=== PATIENT | male | born 1960 | race Caucasian/White ===

== ENCOUNTER 2023-02-25 07:17 | Outpatient (OUT) | payer OTHER, SELFPAY ==
--- NOTE | 2023-02-25 08:00 | NM_ITS ---
Patient: ANA TORIBIO Exam Date: 02/25/2023 : 1960 Gender:M Ordering : DR Tito Pereyra . Admission #: [id number] Family : Order #: [id number] CLICK HERE TO VIEW EXAM RADIOLOGY REPORT PROCEDURE: NM [place] PERF SPECT REST STR COMPARISON: None. INDICATIONS: Chest pain TECHNIQUE: Exam Description: Stress/Rest two day protocol gated SPECT Rest Imagin.9 mCi Tc-99m Cardiolite IV on 02/28/2023 Stress Imaging 25.4 mCi Tc-99m Cardiolite IV on 02/25/2023 Exercise Protocol: 0.4 mg Lexiscan given IV Heart Rate (bpm): Rest: 67 Max: 94 PMHR: 59 Blood Pressure: Rest: 162/78 Max: 168/78 Symptoms: Rest and peak stress ECG findings were normal and the exercise portion of the study was normal per attending physician Dr. Hills . For more details please see separate cardiac stress test report. FINDINGS: QUALITY OF STUDY: Good. PERFUSION DEFECT: LOCATION: Basal inferior. Basal inferolateral. Mid-anterior. Mid-inferior. Mid-inferolateral. [place]. SIZE: Large (5 or more segments). SEVERITY: Moderate. TYPE: Mixed. WALL MOTION: Normal. LV SIZE: Normal. 107 mL. TID / TCD: None; 0.9 LVEF: Normal. Calculated EF 67%. SUMMARY: Myocardial perfusion imaging study has ABNORMAL findings. CONCLUSION: 1. Small to moderate sized area moderately decreased uptake mid anterior and anterior lateral wall, LAD distribution. An area of reversible ischemia is suspected. Consider further evaluation 2. Fixed defect inferior wall, RCA 3. Normal exercise test Dictated by: Kelby Dior MD on 02/28/2023 at 09:32 Approved by: Kelby Dior MD on 02/28/2023 at 09:35
[2023-02-25] MEDS: REGADENOSON 0.4 MG/5 ML SYRINGE IV (08:09)
--- NOTE | 2023-02-25 09:22 | PM.STRESS ---
Stress Test Stress Test Requesting physician: Tito Pereyra Procedure: Lexiscan Cardiolite stress test General Information: Reason for Stress Test: Dyspnea Cardiac History and Risk Factors: Hypertension, LVH. Father s/p CABG. Resting 12 - Lead Electrocardiogram: Normal sinus rhythm with rate 67. Incomplete right bundle branch block. Normal T-waves and ST-segments. Stress Test: Protocol: Lexiscan protocol was initiated with injection of 0.4mg Lexiscan IV push followed by Cardiolite. Blood pressure: Initial: 162/78, Maximum: 168/78 Rate & rhythm: Patient remained in sinus rhythm during the exercise and recovery portions of the study.? The maximum heart rate was 94, which was 59% of the maximum predicted heart rate 158. Isolated PVCs noted. ST-segments & T-waves: There were no T-wave changes and no ST-segment changes when compared to the baseline EKG. Patient response/symptoms: There were no symptoms similar to the chief complaint. Interpretation: Normal Lexiscan. Cardiolite imaging interpretation will be reported separately. Clinical correlation required.
== END 2023-02-25 07:18 | disposition home or self-care (01) ==
PROVIDERS: PCP Family Medicine; Visit Provider Family Medicine
DX: I95.9 Hypotension, unspecified (principal); R06.09 Other forms of dyspnea
CPT/HCPCS: 78452; 93017; A9500; J2785

== ENCOUNTER 2023-03-07 07:47 | Outpatient (OUT) | payer OTHER, SELFPAY ==
[2023-03-07 08:47] LABS: Basophils Absolute Auto 0.1 10^3/uL (0.0-0.1); Basophils Percent Auto 1.2 % (0.2-2.0); Eosinophils Absolute Auto 0.3 10^3/uL (0.0-0.7); Eosinophils Percent Auto 5.1 % (0.9-7.0); Hemoglobin 14.7 g/dL (14.0-18.0); Immature Granulocytes Abs Auto 0.02 10^3/uL (0.00-0.03); Immature Granulocytes Pct Auto 0.3 % (0.0-0.5); Lymphocytes Absolute Auto 2.2 10^3/uL (1.2-3.8); Lymphocytes Percent Auto 32.5 % (20.5-60.0); Mean Corpuscular HGB Conc 32.7 g/dL (29.9-35.2); Mean Corpuscular Hemoglobin 32.1 pg (25.9-34.0); Mean Corpuscular Volume 98.3 fL (80.0-94.0); Mean Platelet Volume 11.1 fL (9.5-13.5); Monocytes Absolute Auto 0.5 10^3/uL (0.3-0.8); Monocytes Percent Auto 7.9 % (1.7-12.0); Neutrophils Absolute Auto 3.6 10^3/uL (1.4-6.5); Platelet Count 314 10^3/uL (150-450); Red Blood Count 4.58 10^6/uL (4.70-6.10); Red Cell Distribution Width 13.9 % (11.0-15.0); White Blood Count 6.7 10^3/uL (4.0-11.0)
[2023-03-07 09:24] LABS: Anion Gap 10.9; BUN Creatinine Ratio 11.2; Carbon Dioxide 25.1 mmol/L (21.0-32.0); Chloride 107 mmol/L (98-107); Estimated GFR (African America 42 (>=60); Estimated GFR (Non-African Ame 35 (>=60); Glucose 153 mg/dL (74-106); Sodium 139 mmol/L (136-145)
== END 2023-03-07 07:48 | disposition home or self-care (01) ==
LOC: LAB 07:48
PROVIDERS: PCP Family Medicine; Visit Provider Internal Medicine Interventional Cardiology
DX: Z01.818 Encounter for other preprocedural examination (principal)
CPT/HCPCS: 36415; 80048; 85025

== ENCOUNTER 2023-04-01 08:50 | Outpatient (OUT) | payer OTHER, SELFPAY ==
[2023-04-01 09:22] LABS: Anion Gap 10.3; BUN Creatinine Ratio 11.7; Calcium 8.4 mg/dL (8.5-10.1); Carbon Dioxide 27.8 mmol/L (21.0-32.0); Chloride 107 mmol/L (98-107); Estimated GFR (African America 52 (>=60); Estimated GFR (Non-African Ame 43 (>=60); Glucose 148 mg/dL (74-106); Potassium 4.1 mmol/L (3.5-5.1); Sodium 141 mmol/L (136-145)
== END 2023-04-01 08:51 | disposition home or self-care (01) ==
PROVIDERS: PCP Family Medicine; Visit Provider Internal Medicine Interventional Cardiology
DX: R94.39 Abnormal result of other cardiovascular function study (principal)
CPT/HCPCS: 36415; 80048

== ENCOUNTER 2023-04-08 06:56 | Outpatient (OUT) | payer OTHER, SELFPAY ==
--- NOTE | 2023-04-08 08:00 | CT_ITS ---
The [address] [address] Patient Name: ANA TORIBIO MRN: [id number] date: 1960 Sex: M Assigned Patient Location: CARD Current Patient Location: CARD Accession/Order Number: [id number] Exam Date: 04/08/2023 08:15 Report Date: 04/08/2023 09:16 At the request of: HERMELINDA LEI Procedure: CT angio chest EXAM: CT angio chest HISTORY: Enlarged Thoracic Aorta I77.89, Shortness Of Breath R06.02 COMPARISON: None. TECHNIQUE: Following intravenous administration of 100 cc of Visipaque, axial soft tissue and lung windows of the chest were performed with coronal and sagittal reformats. 3-D MIPS reconstructions were created and reviewed. CT dose reduction technique was used including Automated Exposure Control. Findings: Unremarkable thyroid gland. The heart is mildly enlarged. There are coronary artery calcifications. No pericardial effusion. The thoracic aorta is normal caliber. No aortic dissection. Aberrant right subclavian artery. The pulmonary arteries are nondilated. The central airways are patent. No pneumothorax. No pleural effusion. No focal consolidation. Minimal bilateral lower lung atelectasis. No enlarged mediastinal, hilar, axillary or supraclavicular lymph nodes. Calcified mediastinal and right hilar nodes likely relating to prior granulomatous disease. There are stones within the gallbladder. Splenic calcifications also likely relating to prior granulomatous disease. No aggressive sclerotic or lytic osseous lesions. Mild multilevel degenerative spondylosis. CT/CT angio chest IMPRESSION: 1. No thoracic aortic aneurysm. 2. Evidence of prior granulomatous disease. 3. Cholelithiasis. Electronically authenticated by: SILVIA DIALLO Date: 04/08/2023 09:16
--- NOTE | 2023-04-08 08:59 | CA_ITS ---
Patient: ANA TORIBIO Exam Date: 04/08/2023 : 1960 Gender:M Ordering : DR HERMELINDA LEI M.D. Admission #: [id number] Family : Order #: [id number] CLICK HERE TO VIEW EXAM ECHOCARDIOGRAM REPORT PROCEDURE: CA ECHO DOPPLER COMPLETE INDICATIONS: Enlarged thoracic aorta, shortness of breath COMPARISON: None. DESCRIPTION: COMPLETE ECHOCARDIOGRAM Real-time transthoracic echocardiography with 2D, M-mode, spectral and color flow Doppler performed. QUALITY: Technical quality was good. LEFT VENTRICLE: Normal chamber size. Normal left ventricular wall thickness. Global left ventricular systolic function is normal. LV EF: Calculated left ventricular ejection fraction is 63%. DIASTOLIC: Normal diastolic function. ATRIAL SEPTUM: LEFT ATRIUM: Mild dilatation. RIGHT ATRIUM: Mild dilatation. RIGHT VENTRICLE: Mild dilatation. Normal right ventricular systolic function. TRICUSPID VALVE: Normal mobility and thickness. No stenosis with trivial regurgitation. No evidence of pulmonary hypertension. RVSP 33 mmHg MITRAL VALVE: Normal mobility and thickness. No evidence of mitral valve stenosis. There is no mitral annular calcification. No mitral regurgitation. AORTIC VALVE: Normal trileaflet appearance. No visible sclerosis. Normal leaflet mobility. No evidence of aortic valve stenosis. No aortic regurgitation. AORTIC ROOT: Normal diameter and appearance. Ascending aorta is normal in size measuring 3.3 cm. PULMONIC VALVE: Normal thickness and mobility. No stenosis. Trivial regurgitation. PERICARDIUM: No evidence of pericardial effusion. IVC: Collapses with inspirations. Normal size. PLEURA: CONCLUSION: 1. Normal ventricular systolic function. LVEF is 60 to 65%. 2. Normal diastolic function. 3. The right ventricle is mildly dilated with normal systolic function. 4. No significant valvular dysfunction. 5. Normal right-sided pressures. 6. The ascending aorta is normal in size. Adult Echocardiography Procedure Report Left Ventricle LVEDD (3.7 - 5.6 cm): 5.31 cm LVESD (2.2 - 4.0 cm): 3.28 cm LVIVS thickness (0.6 - 1.2 cm): 1.03 cm LVPW thickness (0.5 - 1.0 cm): 0.96 cm e': 0.15 m/s E - e': 4.54 LVOT Max Gradient: 3.29 mm[Hg] LVOT Area (cm2): 0.91 m/s Peak Velocity (LVOT): 0.91 m/s Mean Velocity (LVOT): 0.62 m/s LVOT Diameter 2.45 cm Left Ventricular Ejection Fraction: 63.50 % Left Atrium LA Volume Index (2D A2C): 35.51 ml/m2 Left Atrium Systolic Dimension: 3.84 cm Mitral Valve MV E to A Ratio: 0.84 Mitral Valve A-Wave Peak Velocity: 0.80 m/s Mitral Valve E-Wave Peak Velocity: 0.67 m/s Right Ventricle RV Internal Diastolic Dimension: 4.35 cm Aorta AO Root Diam: 3.28 cm Ascending Ao Diam: 3.26 cm Aortic Valve AoV Area (Peak Kyle): 3.44 cm2, 3.44 cm2 AoV Area (VTI): 3.65 cm2, 3.65 cm2 Peak Velocity(Antegrade Flow): 1.24 m/s Peak Gradient(Antegrade Flow): 6.16 mm[Hg] Mean Velocity(Antegrade Flow): 0.79 m/s Mean Gradient(Antegrade Flow): 2.91 mm[Hg] Velocity Time Integral: 28.57 cm Tricuspid Valve Peak Velocity (Regurgitant Flow): 1.59 m/s, 2.75 m/s Pulmonic Valve Mean Gradient: 2.44 mm[Hg], 2.24 mm[Hg] Mean Velocity: 0.72 m/s, 0.69 m/s Peak Velocity: 1.04 m/s Peak Gradient: 4.74 mm[Hg], 3.87 mm[Hg] Right Atrium Right Atrium Systolic Pressure: 56.57 ml, 56.57 ml Dictated by: Jason Jalloh M.D. on 04/08/2023 at 16:02 Approved by: Jason Jalloh M.D. on 04/08/2023 at 16:13
== END 2023-04-08 06:57 | disposition home or self-care (01) ==
LOC: CARD 06:56
PROVIDERS: PCP Family Medicine; Visit Provider Internal Medicine Interventional Cardiology
DX: I77.89 Other specified disorders of arteries and arterioles (principal); R06.02 Shortness of breath; K80.20 Calculus of gallbladder without cholecystitis without obstruction; R93.89 Abnormal findings on diagnostic imaging of other specified body structures
CPT/HCPCS: 71275; 93306; Q9966

== ENCOUNTER 2023-04-25 08:47 | Outpatient (OUT) | payer OTHER, SELFPAY ==
[2023-04-25 10:11] LABS: Chol HDL Ratio 3.3; Cholesterol 117 mg/dL (<=200); HDL Cholesterol 35 mg/dL (40-60); Triglycerides 169 mg/dL (<=150); VLDL CHOLESTEROL 33.8 mg/dL
== END 2023-04-25 08:48 | disposition home or self-care (01) ==
LOC: LAB 08:48
PROVIDERS: PCP Family Medicine; Visit Provider Internal Medicine Interventional Cardiology
DX: E78.5 Hyperlipidemia, unspecified (principal)
CPT/HCPCS: 36415; 80061

== ENCOUNTER 2023-06-10 07:52 | Outpatient (OUT) | payer OTHER, SELFPAY ==
--- NOTE | 2023-06-10 09:10 | CA_ITS ---
The [facility] Test Date: 2023-06-10 Pat Name: ANA TORIBIO Department: Room: - Gender: Male Barrel Inspector: Courtney Rodriguez : 1960 Requested By: HERMELINDA LEI Order Number: [id number] Reading MD: DUNCAN HULL Interpretive Statements Biphasic doppler waveforms. PVR waveforms with normal upstroke, amplitude and dicrotic notch Right: - significant pressure gradient between the calf and DP cuff - abnormal DAWSON Left: - sigificant pressure gradient between the calf and DP cuff - abnormal DAWSON Impression - elevated indices (B/L thigh, B/L calf, B/L DP and left PT) consistent with calcified, noncompressible arterial mitchell, which may underestemate the degree of arterial disease - segmental pressures nondiagnostic due to elevated indices - B/L TBI, which are not influenced by arterial wall calcification, are normal. - clinical correlation advised Electronically Signed On 06-12-2023 7:20:11 EDT by DUNCAN HULL
== END 2023-06-10 07:53 | disposition home or self-care (01) ==
LOC: CARD 07:53
PROVIDERS: PCP Family Medicine; Visit Provider Internal Medicine Interventional Cardiology
DX: I73.9 Peripheral vascular disease, unspecified (principal)
CPT/HCPCS: 93924

== ENCOUNTER 2024-03-15 08:43 | Outpatient (OUT) | payer OTHER, SELFPAY ==
[2024-03-15 10:19] LABS: Phosphorus 3.5 mg/dL (2.6-4.7)
[2024-03-15 10:21] LABS: Creatinine Urine Random 154.24 mg/dL (20.00-300.00); Microalbum Creatinine Ratio Ur 8.4 mg/g (0.0-29.9); Microalbumin Urine Random <1.3 mg/dL (<=30.0)
== END 2024-03-15 08:44 | disposition home or self-care (01) ==
LOC: LAB 08:44
PROVIDERS: PCP Family Medicine; Visit Provider Internal Medicine
DX: E11.59 Type 2 diabetes mellitus with other circulatory complications (principal); E55.9 Vitamin D deficiency, unspecified; E66.01 Morbid (severe) obesity due to excess calories
CPT/HCPCS: 36415; 82043; 82306; 82570; 84100

== ENCOUNTER 2024-03-15 08:47 | Outpatient (OUT) | payer OTHER, SELFPAY ==
[2024-03-15 09:56] LABS: Basophils Absolute Auto 0.1 10^3/uL (0.0-0.1); Basophils Percent Auto 1.3 % (0.2-2.0); Eosinophils Absolute Auto 0.3 10^3/uL (0.0-0.7); Eosinophils Percent Auto 6.1 % (0.9-7.0); Hemoglobin 14.4 g/dL (14.0-18.0); Immature Granulocytes Abs Auto 0.01 10^3/uL (0.00-0.03); Immature Granulocytes Pct Auto 0.2 % (0.0-0.5); Lymphocytes Absolute Auto 1.6 10^3/uL (1.2-3.8); Mean Corpuscular HGB Conc 32.7 g/dL (29.9-35.2); Mean Corpuscular Hemoglobin 32.7 pg (25.9-34.0); Mean Platelet Volume 11.2 fL (9.5-13.5); Monocytes Absolute Auto 0.4 10^3/uL (0.3-0.8); Monocytes Percent Auto 7.8 % (1.7-12.0); Neutrophils Absolute Auto 3.1 10^3/uL (1.4-6.5); Neutrophils Percent Auto 56.6 % (43.0-75.0); Platelet Count 251 10^3/uL (150-450); Red Cell Distribution Width 13.9 % (11.0-15.0); White Blood Count 5.5 10^3/uL (4.0-11.0)
[2024-03-15 10:11] LABS: Estimated Average Glucose 117 mg/dL; Glycohemoglobin A1C 5.7 % (4.5-6.2)
[2024-03-15 10:25] LABS: Alanine Aminotransferase 13 U/L (16-63); Albumin Level 3.3 g/dL (3.4-5.0); Alkaline Phosphatase 84 U/L (46-116); Anion Gap 11.6; Aspartate Amino Transferase 15 U/L (15-37); Bilirubin Total 0.6 mg/dL (0.2-1.0); Calcium 8.6 mg/dL (8.5-10.1); Carbon Dioxide 26.6 mmol/L (21.0-32.0); Chloride 107 mmol/L (98-107); Chol HDL Ratio 2.7; Cholesterol 114 mg/dL (<=200); Estimated GFR (African America 59 (>=60); Estimated GFR (Non-African Ame 48 (>=60); Globulin 3.2 g/dL; Glucose 118 mg/dL (74-106); HDL Cholesterol 42 mg/dL (40-60); Potassium 4.2 mmol/L (3.5-5.1); Sodium 141 mmol/L (136-145); Total Protein 6.5 g/dL (6.4-8.2); Triglycerides 85 mg/dL (<=150)
[2024-03-15 10:35] LABS: Free T3 2.12 pg/mL (2.18-3.98)
[2024-03-15 11:29] LABS: Prostate Specific Antigen Scrn 2.02 ng/mL (<=4.00)
== END 2024-03-15 08:48 | disposition home or self-care (01) ==
LOC: LAB 08:49
PROVIDERS: PCP Family Medicine; Visit Provider Family Medicine
DX: E11.59 Type 2 diabetes mellitus with other circulatory complications (principal); E55.9 Vitamin D deficiency, unspecified; E66.01 Morbid (severe) obesity due to excess calories; R94.39 Abnormal result of other cardiovascular function study; I25.10 Atherosclerotic heart disease of native coronary artery without angina pectoris; R06.00 Dyspnea, unspecified; E78.5 Hyperlipidemia, unspecified; Z12.5 Encounter for screening for malignant neoplasm of prostate
CPT/HCPCS: 36415; 80053; 80061; 82043; 82306; 82570; 83036; 84100; 84436; 84443; 84481; 85025; G0103

== ENCOUNTER 2025-03-08 07:52 | Outpatient (OUT) | payer MEDICARE, SELFPAY ==
--- OUTSIDE RECORDS SUMMARY | 2024-10-05 09:55 | XMS_ITS ---
Author Name Auto Generated Organization [facility] Care Team Providers Care Gastroenterology Technician Name Role Phone JOANNA SY Attending Unavailable JOANNA SY Referring Unavailable HERMELINDA MOJICA Attending Unavailable PROBLEMS DATE TYPE CONDITION / CODE ATTENDING STATUS [facility] 10/30/2023 Admitting Diagnosis Atherosclerotic heart disease of [place] coronary artery without angina pectoris / I25.10(ICD-10) HERMELINDA MOJICA Active [facility] PROCEDURES No Procedure Records Found RESULTS OFFICE VISIT Observed: 05/04/2024 9:00 AM Status: COMPLETED Source: [facility] [id number] Hilario Francis M Date Provider Department Center 05/04/2024 271-HERMELINDA MOJICA [facility] Family History Problem Relation Age of Onset Coronary artery disease Father Other Father Family Status - Relation Status Age at Father Level of Service:[address] [place] OFFICE/OUTPATIENT ESTABLISHED LOW MDM 20 MIN PROGRESS Observed: 05/04/2024 9:00 AM Status: COMPLETED Source: [facility] Cardiology Clinic Note Chief Complaint: Patient here for follow up heart cath, CTA, and echo. Still denies chest pain and SOB. Always has claudication. HPI: Hilario Francis is a 63 y.o. male With a history of coronary artery disease, hypertension and diabetes He states that he feels improved after his heart catheterization and initiation of medical therapy. He has no shortness of breath. He denies chest pain. He denies leg pain per se however states that his legs are always tired . No nocturnal pain, no skin breakdown or ulcerations. Update 05/04/2024: Doing well; no new cardiovascular symptoms Cardiology ROS: Review of Systems Constitutional: Positive for malaise/fatigue. Negative for chills, fever and weight gain. Cardiovascular: Negative for chest pain, claudication, dyspnea on exertion, irregular heartbeat, leg swelling, near-syncope, orthopnea, palpitations, paroxysmal nocturnal dyspnea and syncope. All other systems reviewed and are negative. Past Medical History He has a past medical history of Diabetes mellitus ([facility]), Hypotension, and Stroke ([facility]). Surgical History He has no past surgical history on file. Social History He reports that he has never smoked. His smokeless tobacco use includes chew. He reports that he does not currently use alcohol. No history on file for drug use. Family History Family History Problem Relation Name Age of Onset Coronary artery disease Father Other (CABG) Father Allergies Patient has no known allergies. Medications Current Outpatient Medications: atorvastatin (Lipitor) 80 mg tablet, Take 1 tablet (80 mg) by mouth at bedtime., Disp: 90 tablet, Rfl: 3 carvedilol (Coreg) 3.125 mg tablet, Take 1 tablet (3.125 mg) by mouth with breakfast and with evening meal., Disp: 180 tablet, Rfl: 3 diclofenac (Voltaren) 75 mg EC tablet, Take 75 mg by mouth in the morning and at bedtime. Do not crush, chew, or split., Disp: , Rfl: dilTIAZem CD (Cardizem CD) 300 mg 24 hr capsule, Take 300 mg by mouth in the morning., Disp: , Rfl: glipiZIDE (Glucotrol) 10 mg tablet, Take 20 mg by mouth in the morning., Disp: , Rfl: isosorbide mononitrate ER (Imdur) 30 mg 24 hr tablet, Take 1 tablet (30 mg) by mouth once daily as directed. Do not crush or chew., Disp: 90 tablet, Rfl: 3 lisinopril 20 mg tablet, Take 20 mg by mouth in the morning., Disp: , Rfl: Ozempic 2 mg/dose (8 mg/3 mL) pen injector, Inject 8 mg/mL under the skin 1 (one) time per week., Disp: , Rfl: pioglitazone (Actos) 30 mg tablet, Take 45 mg by mouth in the morning., Disp: , Rfl: aspirin 81 mg EC tablet, Take 81 mg by mouth in the morning., Disp: , Rfl: Last Recorded Vitals BP 131/71 (BP Location: Right arm, Patient Position: Sitting) Pulse 67 Ht 1.88 m (6' 2 ) Wt (!) 147 kg (325 lb) SpO2 95% BMI 41.73 kg/m??? Physical Examination: GENERAL: alert and oriented x3, well developed, in no acute distress. HEAD: atraumatic, normocephalic. EYES: TAMMIE, EOMI. NECK: trachea midline, no JVD present, no carotid bruits present. CARDIAC: S1, S2 present. RRR. No murmur, rubs, or gallops. RESPIRATORY: CTAB, no increased effort of breathing, no rales, rhonchi, or wheezing. ABDOMEN: soft, nontender, nondistended. EXTREMITIES: no lower extremity edema, peripheral pulses are 2+ bilaterally. No rash/skin discoloration present. NEURO: strength/sensation equal and symmetric in bilateral upper and lower extremities. PSYCH: appropriate mood, affect, and judgement. Investigations: Cardiovascular Laboratory Report FINAL IMPRESSIONS: Subtotally occluded diagonal branch of the left anterior descending coronary artery Moderate disease of the left anterior descending coronary artery Mild to moderate disease of the left circumflex and right coronary arteries Normal global left ventricular systolic function by noninvasive imaging Fluoroscopic evidence of enlarged ascending aorta and aortic root Moderate to severe systemic hypertension RECOMMENDATIONS: A computerized tomographic angiogram (CTA) of the thoracic aorta will be ordered to evaluate for evidence of aneurysmal disease A complete echocardiogram will be obtained to evaluate valvular and other structural parameters Aggressive cardiovascular factor modification Optimal medical therapy for coronary artery disease should include aspirin, high intensity statin therapy, a beta-kenneth and given his diabetes RAAS inhibitor Will add Imdur 30 mg daily for symptomatic relief Could consider addition of an SGLT2 inhibitor or GLP-1 receptor agonist given diabetes and vascular disease Follow-up with Dr. Mojica in the next 1 to 2 months Follow-up with his family physician as scheduled Basic metabolic panel 04/01/2023: Serum creatinine 1.63 Echocardiogram 04/08/2023 Global left ventricular systolic function is normal; EF is 60 to 65%. Normal diastolic function. Right ventricle is mildly dilated with normal systolic function. No significant valvular abnormalities. Normal right-sided pressures. CTA thoracic aorta: No thoracic aortic aneurysm Evidence of prior granulomatous disease Cholelithiasis Segmental leg pressures and ABIs 06/10/2023: Bilateral toe brachial indices which are not influenced by arterial wall calcification on normal Labs 03/15/2024: Creatinine is 1.47 HbA1c is 5.7 AST and ALT are normal Cholesterol is 114, LDL is 55, HDL is 42, triglycerides 85 Assessment: Coronary artery disease: Abnormal stress test Exertional fatigue/shortness of breath - Anginal equivalent History of hypertension Dyslipidemia Diabetes mellitus History of cerebrovascular accident Chronic kidney disease Plan: Continue optimal medical therapy for coronary artery disease including aspirin, high intensity statin therapy, RAAS inhibition and a beta-kenneth He is appropriately on a GLP-1 receptor agonist in the form of Ozempic Discontinue fenofibrate; check fasting lipid profile and liver function test in the next several weeks. If he still has elevated triglycerides, will consider addition of Vascepa. Continue Imdur; Uptitrate as needed for symptom relief Return to clinic in 12 months or sooner should problems arise Hermelinda Mojica MD, MPH, [facility], [facility], [facility] Interventional Cardiology Pager Email: [email or web address] ALLERGIES DATE TYPE / CODE NAME / CODE REACTION SEVERITY SOURCE SYSTEMIC/[id number]( SNOMED CT) NO KNOWN ALLERGIES [facility] ENCOUNTERS ADMIT/DISCHARGE ACCOUNT NUMBER ADMITTING ENCOUNTER CLASS LOCATION SOURCE 10/05/2024/ 5 [id number] Ambulatory Building:[facility] 05/04/2024/ 4 [id number] Ambulatory Building:[facility] PAYERS ENCOUNTER GUARANTOR PAYER SUBSCRIBER SOURCE 10/05/2024 HILARIO GARCIA TYREEDOB: [id number] [address], [place] [address]Hld: () Primary Insurance:[employer] MUTUAL MEDICAREPolicy Number: [id number] Date:2024-09-01 HILARIO GARCIA TYREEDOB: [id number] [address], [place] [address] [facility] 05/04/2024 Primary Insurance:[facility] WorldHeartPolicy Number: [id number] Date:2022-09-01 HILARIO WAGGONEROB: [id number] [address], [place] [address] [facility]
[2025-03-08 10:30] LABS: Albumin Level 3.5 g/dL (3.4-5.0); Anion Gap 11.6; Blood Urea Nitrogen 21.0 mg/dL (7.0-18.0); Calcium 9.0 mg/dL (8.5-10.1); Carbon Dioxide 28.8 mmol/L (21.0-32.0); Chloride 108 mmol/L (98-107); Cholesterol 107 mg/dL (<=200); Estimated GFR (African America 59 (>=60 mL/min/1.73m^2); Estimated GFR (Non-African Ame 49 (>=60 mL/min/1.73m^2); Glucose 118 mg/dL (74-106); HDL Cholesterol 43 mg/dL (40-60); Potassium 4.4 mmol/L (3.5-5.1); Sodium 144 mmol/L (136-145); Triglycerides 90 mg/dL (<=150); VLDL CHOLESTEROL 18.0 mg/dL
== END 2025-03-08 07:53 | disposition home or self-care (01) ==
PROVIDERS: PCP Family Medicine; Visit Provider Internal Medicine
DX: E11.65 Type 2 diabetes mellitus with hyperglycemia (principal)
CPT/HCPCS: 36415; 80061; 80069; 82043; 82306; 82570

== ENCOUNTER 2025-04-29 07:12 | Outpatient (OUT) | payer MEDICARE, SELFPAY ==
--- OUTSIDE RECORDS SUMMARY | 2025-04-29 07:19 | XMS_ITS | CCD ---
Author Organization [facility] CliniSyne Care Team Providers Care Cloth Classer Name Role Phone DAVEY SY Attending Unavailable DAVEY SY Consulting Unavailable DR JILLIAN PEREYRA Primary Care Unavailable DAVEY SY Admitting Unavailable DAVEY SY Consulting Unavailable DR JILLIAN PEREYRA Primary Care Unavailable DAVEY SY Admitting Unavailable DAVEY SY Attending Unavailable HALLIE, DR WALSH Admitting Unavailable DR JILLIAN PEREYRA Attending Unavailable DR JILLIAN PEREYRA Consulting Unavailable DR JILLIAN PEREYRA Primary Care Unavailable MAGNUS MAYBERRY Attending Unavailable HERMELINDA MOJICA Attending Unavailable Unavailable Primary Care Provider UnavailJillian Sorenson MD Primary Care Provider [phone] Jillian Pereyra MD Primary Care Provider [phone] DAVEY SY Attending Unavailable DAVEY SY F Referring Unavailable DAVEY SY Attending Unavailable Allergies Allergy Classification Reported Allergen(s) Allergy Type Date of Onset Reaction(s) Facility (7 sources) SITagliptin Drug Allergy 08-17-2024 [facility] Medications Current Medications Medication Drug Class(es) Dates Sig (Normalized) Sig (Original) aspirin 81 mg delayed release oral tablet (6 sources) Platelet Aggregation Inhibitor, Nonsteroidal Anti-inflammatory Drug take 1 tablet by mouth once daily aspirin 81 MG EC tablet Take 81 mg by mouth Daily Active atorvastatin 80 mg oral tablet (6 sources) HMG-CoA Reductase Inhibitor take 1 tablet by mouth once daily atorvastatin (Lipitor) 80 MG tablet Take 80 mg by mouth Daily Active carvedilol 3.125 mg oral tablet (6 sources) alpha-Adrenergic Matilde, beta-Adrenergic Matilde carvedilol (Coreg) 3.125 MG tablet 3.125 mg Active diclofenac sodium 75 mg delayed release oral tablet (7 sources) Nonsteroidal Anti-inflammatory Drug Start: 04-28-2024 diclofenac (Voltaren) 75 MG EC tablet Take 75 mg by mouth as needed in the morning and 75 mg as needed in the evening. 04/28/2024 Active 24 hr dilTIAZem hydrochloride 300 mg extended release oral capsule (7 sources) Calcium Channel Matilde Start: 06-26-2024 take 1 capsule by mouth once daily, then take 1 capsule by mouth every twenty-four hours dilTIAZem CD (Cardizem CD) 300 MG 24 hr capsule Take 300 mg by mouth Daily 06/26/2024 Active fenofibrate 145 mg oral tablet (7 sources) Peroxisome Proliferator Receptor alpha Agonist Start: 10-04-2023 take 1 tablet by mouth once daily fenofibrate (Tricor) 145 MG tablet Take 145 mg by mouth Daily 10/04/2023 Active glipiZIDE 10 mg oral tablet (10 sources) Sulfonylurea Start: 07-10-2024 End: 10-02-2025 take 1 tablet by mouth twice daily before mealtime glipiZIDE (Glucotrol) 10 MG tablet Indications: Type 2 diabetes mellitus with hyperglycemia, without long-term current use of insulin (HCC) Take 1 tablet (10 mg) by mouth 2 (two) times a day before meals 180 tablet 1 04/05/2025 10/02/2025 Active 24 hr isosorbide mononitrate 30 mg extended release oral tablet (7 sources) Nitrate Vasodilator Start: 04-23-2024 take 1 tablet by mouth once daily, then take 1 tablet by mouth every twenty-four hours isosorbide mononitrate ER (Imdur) 30 MG 24 hr tablet Take 30 mg by mouth Daily 04/23/2024 Active lisinopril 20 mg oral tablet (7 sources) Angiotensin Converting Enzyme Inhibitor Start: 04-28-2024 take 1 tablet by mouth once daily lisinopril 20 MG tablet Take 20 mg by mouth Daily 04/28/2024 Active Ozempic, 2 MG/DOSE, 8 MG/3ML solution pen-injector (4 sources) Start: 06-26-2024 End: 12-07-2024 take 2 mg by mouth every week Ozempic, 2 MG/DOSE, 8 MG/3ML solution pen-injector Take 2 mg by mouth 1 (one) time per week 06/26/2024 12/07/2024 Discontinued Start: 06-26-2024 take 2 mg by mouth every week Ozempic, 2 MG/DOSE, 8 MG/3ML solution pen-injector Take 2 mg by mouth 1 (one) time per week 06/26/2024 Active pioglitazone 45 mg oral tablet (10 sources) Peroxisome Proliferator Receptor alpha Agonist, Peroxisome Proliferator Receptor gamma Agonist, Thiazolidinedione Start: 04-05-2025 take 1 tablet by mouth once daily pioglitazone (Actos) 45 MG tablet Indications: Type 2 diabetes mellitus with hyperglycemia, without long-term current use of insulin (HCC) Take 1 tablet (45 mg) by mouth Daily 90 tablet 1 04/05/2025 Active Start: 04-05-2025 take 1 tablet by jesus th once daily pioglitazone (Actos) 45 MG tablet Indications: Type 2 diabetes mellitus with hyperglycemia, without long-term current use of insulin (HCC) Take 1 tablet (45 mg) by mouth Daily 90 tablet 1 04/05/2025 Active Start: 03-22-2025 End: 04-05-2025 take 1 tablet by mouth once daily pioglitazone (Actos) 45 MG tablet Indications: Type 2 diabetes mellitus with other circulatory complications (HCC) TAKE 1 TABLET BY MOUTH EVERY DAY 90 tablet 1 03/22/2025 04/05/2025 Discontinued (Reorder) Start: 07-10-2024 take 1 tablet by jesus th once daily pioglitazone (Actos) 45 MG tablet Indications: Type 2 diabetes mellitus with other circulatory complications TAKE 1 TABLET BY MOUTH EVERY DAY 90 tablet 1 07/10/2024 Active Semaglutide, 2 MG/DOSE, (Ozempic, 2 MG/DOSE,) 8 MG/3ML solution pen-injector (6 sources) Start: 04-05-2025 End: 07-04-2025 Semaglutide, 2 MG/DOSE, (Ozempic, 2 MG/DOSE,) 8 MG/3ML solution pen-injector Indications: Type 2 diabetes mellitus with hyperglycemia, without long-term current use of insulin (HCC) Inject 2 mg under the skin every 7 (seven) days 3 mL 1 04/05/2025 07/04/2025 Active Start: 01-31-2025 End: 04-05-2025 Semaglutide, 2 MG/DOSE, (Oze mpic, 2 MG/DOSE,) 8 MG/3ML solution pen-injector Indications: Type 2 diabetes mellitus with other circulatory complications (HCC) INJECT 2 MG SUBCUTANEOUSLY EVERY 7 DAYS 3 mL 5 01/31/2025 04/05/2025 Discontinued (Reorder) Start: 01-31-2025 Semaglutide, 2 MG/DOSE, (Ozempic, 2 MG/DOSE,) 8 MG/3ML solution pen-injector Indications: Type 2 diabetes mellitus with other circulatory complications (HCC) INJECT 2 MG SUBCUTANEOUSLY EVERY 7 DAYS 3 mL 5 01/31/2025 Active Start: 12-07-2024 End: 03-07-2025 Semaglutide, 2 MG/DOSE, (Oze mpic, 2 MG/DOSE,) 8 MG/3ML solution pen-injector Indications: Type 2 diabetes mellitus with other circulatory complications Inject 2 mg under the skin every 7 (seven) days 6 mL 1 12/07/2024 03/07/2025 Active Problems Active Problems Problem Classification Problem Date Documented Date Episodic/Chronic Administrative/social admission (4 sources) Patient encounter status; Translations: [Dietary counseling and surveillance] 10-05-2024 Episodic Chronic kidney disease (11 sources) Chronic kidney disease stage 3; Translations: [Chronic kidney disease (CKD), stage III (moderate) ([facility])] Onset: 08-17-2024 08-17-2024 Chronic Congestive heart failure; nonhypertensive (1 source) Unspecified diastolic (congestive) heart failure; Translations: [UNSPECIFIED DIASTOLIC HEART FAILURE] Onset: 02-09-2022 Chronic Coronary atherosclerosis and other heart disease (2 sources) Atherosclerotic heart disease of [place] coronary artery without angina pectoris; Translations: [Atherosclerotic heart disease of [place] coronary artery without angina pectoris] Onset: 10-30-2023 Chronic Diabetes mellitus with complications (20 sources) Type 2 diabetes mellitus with other circulatory complications; Translations: [Type 2 diabetes mellitus with diabetic neuropathy, unspecified] Onset: 02-06-2022 Chronic Diabetes mellitus without complication (2 sources) Type 2 diabetes mellitus 04-05-2025 Chronic Disorders of lipid metabolism (12 sources) Hyperlipidemia, unspecified; Translations: [Mixed hyperlipidemia] Onset: 02-09-2022 08-17-2024 Chronic Essential hypertension (11 sources) Essential hypertension; Translations: [Essential (primary) hypertension] Onset: 08-17-2024 08-17-2024 Chronic Hypertension with complications and secondary hypertension (1 source) Hypertensive heart disease with heart failure; Translations: [HTN HEART DISEASE W/HEART FAIL] Onset: 02-09-2022 Chronic Nutritional deficiencies (16 sources) Vitamin D deficiency, unspecified; Translations: [Vitamin D deficiency] Onset: 10-02-2022 08-17-2024 Chronic Other nutritional; endocrine; and metabolic disorders (1 source) Morbid (severe) obesity due to excess calories; Translations: [MORBID SEVERE OBES D/T EXCESS ALENA] Onset: 10-12-2021 Chronic Other nutritional; endocrine; and metabolic disorders (4 sources) Severe obesity; Translations: [Class 2 severe obesity due to excess calories with serious comorbidity and body mass index (BMI) of 38.0 to 38.9 in adult ([facility])] 10-05-2024 Chronic Unclassified (1 source) LOW BACK PAIN, UNSPECIFIED; Translations: [LOW BACK PAIN, UNSPECIFIED] Onset: 02-09-2022 Past or Other Problems Problem Classification Problem Date Documented Da te Episodic/Chronic Diabetes mellitus without complication (1 source) Other abnormal glucose; Translations: [OTHER ABNORMAL GLUCOSE] Onset: 02-09-2022 Episodic Other screening for suspected conditions (not mental disorders or infectious disease) (2 sources) Encounter for screening for malignant neoplasm of rectum; Translations: [Encounter for screening for malignant neoplasm of prostate] Onset: 02-09-2022 Episodic Results Test Name Value Interpretation Reference Range Facility Glucose (Bld) [Mass/Vol]Orde red By: Cinthya Medellin on 04-05-2025 Glucose Blood, POC 121 mg/dL [facility] - Hematology and Cell count[facility] 04-05-2025 HbA1c (Bld) [Mass fraction] 5.7 % [facility] No Panel InformationOrdered By: Cinthya Medellin on 04-05-2025 [facility] Glucose (Bld) [Mass/Vol]Orde red By: Cinthya Medellin on 10-05-2024 Glucose Blood, POC 145 mg/dL [facility] - H[facility]ology [facility] Cell count[facility] 10-05-2024 HbA1c (Bld) [Mass fraction] 6.2 % [facility] No Panel InformationOrdered By: Cinthya Medellin on 10-05-2024 [facility] Healthcare Office Visiton 05-04-2024 Follow-up visit [id number] Hilario Francis 1960 M Date Provider Department Center 05/04/2024 271-HERMELINDA MOJICA CARD [facility] Family History Problem Relation Age of Onset Coronary artery disease Father Other Father Family Status - Relation Status Age at Father Level of Service:03225 [place] OFFICE/OUTPATIENT ESTABLISHED LOW MDM 20 MIN Normal [facility] Office Visiton 10-28-2023 Follow-up visit [id number] Hilario Francis 1960 M Date Provider Department Center 10/28/2023 MAGNUS WILCOX CARD [facility] Family History Problem Relation Age of Onset Coronary artery disease Father Other Father Family Status - Relation Status Age at Father Level of Service:64488 [place] OFFICE/OUTPATIENT ESTABLISHED MOD MDM 30 MIN Reason for Visit and Comments: Coronary Artery Disease [187] Hypertension [677251] Hyperlipidemia [182] Normal [facility] LIPID PROFILEon 10-01-2022 CHOL-HDL RATIO NORM SEE BELOW Normal [facility] Comment on above: Result Comment: 3.3 - 4.4 LOW RISK 4.4 - 7.1 AVERAGE RISK 7.1 - 11.0 MODERATE RISK >11.0 HIGH RISK Performed By: #### P SASC, VITAD #### [facility] [address] [place] [address] Dr. Sandy Paulson Cholesterol [Mass/Vol] 223 mg/dL Critically high <=200 [facility] Comment on above: Performed By: #### P SASC, VITAD #### [facility] [address] [address] [address] Sandy Paulson Cholesterol in HDL [Mass/Vol] 35 mg/dL Critically low 40-60 [facility] Comment on above: Performed By: #### P SASC, VITAD #### [facility] [address] [address] [address] Sandy Paulson Cholesterol in LDL [Mass/Vol] 148.6 mg/dL Normal [facility] Comment on above: Performed By: #### P SASC, VITAD #### [facility] [address] [address] [address] Sandy Paulson Cholesterol.total/Chol esterol in HDL [Mass ratio] 6.4 {ratio} Normal [facility] Comment on above: Performed By: #### P SASC, VITAD #### [facility] [address] [address] [address] Sandy Paulson HDL NORMAL > or = 60 mg/dl - LOW CARDIOVASCULAR RISK <40 mg/dl - HIGH CARDIOVASCULAR RISK Normal [facility] Comment on above: Performed By: #### P SASC, VITAD #### [facility] [address] [address] [address] Sandy Paulson LDL CALC NORMAL SEE BELOW Normal [facility] Comment on above: Result Comment: <100 mg/dl OPTIMAL 100 - 129 mg/dl NEAR OR ABOVE OPTIMAL 130 - 159 mg/dl BORDERLINE HIGH 160 - 189 mg/dl HIGH >190 mg/dl VERY HIGH Performed By: #### P SASC, VITAD #### [facility] [address] [address] [address] Sandy Paulson Triglyceride [Mass/Vol] 197 mg/dL Critically high <=150 [facility] Comment on above: Performed By: #### P SASC, VITAD #### [facility] [address] [address] [address] Sandy Paulson VLDL CALC 39.4 mg/dL Normal [facility] Comment on above: Performed By: #### P SASC, VITAD #### [facility] [address] [address] [address] Sandy Paulson MICROALB CREAT RATIO RANDOMo n 10-01-2022 mALB 3.7 mg/L Normal <=30.0 [facility] Comment on above: Performed By: #### P SASC, VITAD #### [facility] [address] [address] [address] Sandy Paulson MALB CR RATIO 29.1 mg/g Normal 0.0-29.[address] [facility] Comment on above: Performed By: #### P SASC, VITAD #### [facility] [address] [address] [address] Sandy Paulson MALB CR RATIO RANGE SEE BELOW Normal [facility] Comment on above: Result Comment: NO M ICROALBUMINURIA 0-29 MG/G CLINICAL MICROALBUMINURIA 30-300 MG/G MACROALBUMINURIA >300 MG/G Performed By: #### P SASC, VITAD #### [facility] [address] [address] [address] Sandy Paulson URINE CREAT 127.04 mg/dL Normal 20.00-300.00 [facility] Comment on above: Performed By: #### P SASC, VITAD #### [facility] [address] [address] [address] Sandy Paulson RENAL FUNCTION PANELon 10-01 Albumin [Mass/Vol] 3.9 g/dL Normal 3.4-5.0 [facility] Comment on above: Performed By: #### P SASC, VITAD #### [facility] [address] [address] [address] Sandy Paulson Calcium [Mass/Vol] 9.5 mg/dL Normal 8.5-10.1 [facility] Comment on above: Performed By: #### P SASC, VITAD #### [facility] [address] [address] [address] Sandy Paulson Chloride [Moles/Vol] 102 mmol/L Normal 98-107 [facility] Comment on above: Performed By: #### P SASC, VITAD #### [facility] [address] [address] [address] Sandy Paulson CO2 [Moles/Vol] 27.1 mmol/L Normal 21.0-32.0 [facility] Comment on above: Performed By: #### P SASC, VITAD #### [facility] [address] [address] [address] Sandy Paulson Creatinine [Mass/Vol] 2.03 mg/dL Critically high 0.70-1.30 [facility] Comment on above: Performed By: #### P SASC, VITAD #### [facility] [address] [address] [address] Sandy Paulson EGFR-AF SPANISH 41 mL/min/1.73m2 Critically low >=60 [facility] Comment on above: Performed By: #### P SASC, VITAD #### [facility] [address] [address] [address] Sandy Paulson EGFR-NON AF SPANISH 34 mL/min/1.73m2 Critically low >=60 [facility] Comment on above: Performed By: #### P SASC, VITAD #### [facility] [address] [place] [address] Dr. Sanyd Paulson Glucose [Mass/Vol] 206 mg/dL Critically high 74-106 [facility] Comment on above: Performed By: #### P SASC, VITAD #### [facility] [address] [place] [address] Dr. Sandy Paulson Phosphate [Mass/Vol] 3.0 mg/dL Normal 2.6-4.7 [facility] Comment on above: Performed By: #### P SASC, VITAD #### [facility] [address] [place] [address] Dr. Sandy Paulson Potassium [Moles/Vol] 3.7 mmol/L Normal 3.5-5.1 [facility] Comment on above: Performed By: #### P SASC, VITAD #### [facility] [address] [place] [address] Dr. Sandy Paulson Sodium [Moles/Vol] 140 mmol/L Normal 136-145 [facility] Comment on above: Performed By: #### P SASC, VITAD #### [facility] [address] [place] [address] Dr. Sandy Paulson Urea nitrogen [Mass/Vol] 20.0 mg/dL Critically high 7.0-18.0 [facility] Comment on above: Performed By: #### P SASC, VITAD #### [facility] [address] [place] [address] Dr. Sandy Paulson VITAMIN D 25 OHon 10-01-2022 VIT D 25-OH 33.9 ng/mL Normal [facility] Comment on above: Performed By: #### V ITAD #### [facility] [address] [place] [address] Dr. Sandy Paulson VIT D RANGES SEE BELOW Normal [facility] Comment on above: Result Comment: <20 ng/mL Vit D deficient 20 - <30 ng/mL Vit D insufficient 30 - 100 ng/mL Vit D sufficient >100 ng/mL Potential Toxicity Performed By: #### V ITAD #### [facility] [address] [place] [address] Dr. Sandy Paulson AMANDA by IFAon 02-07-2022 Antinuclear Antibodies, IFA Negative Normal [facility] Comment on above: Result Comment: Nega tive <1:80 Borderline 1:80 Positive >1:80 ICAP nomenclature: AC-0 For more information about Hep-2 cell patterns use ANApatterns.org, the official website for the International Consensus on Antinuclear Antibody (AMANDA) Patterns (ICAP). Performed By: #### P ALINE, VITAD #### [facility] [address] [place] [address] Dr. Sandy Paulson ANTISTREPTOLYSIN O AB (ASO)o n 02-07-2022 Antistreptolysin O Ab 97.2 IU/mL Normal 0.0-200.0 [facility] Comment on above: Performed By: #### A SOAB #### [facility] [address] [place] [address] Dr. Sandy Paulson INSULINon 02-07-2022 Insulin 22.9 uIU/mL Normal 2.6-24.9 [facility] Comment on above: Performed By: #### I NSULIN #### [facility] [address] [place] [address] Dr. Sandy Paulson RHEUMATOID FACTORon 02-08-20 RA Latex Turbid. <10.0 Normal <14.0 [facility] Comment on above: Performed By: #### P ALINE, VITAD #### [facility] [address] [place] [address] Dr. Sandy Paulson T4 LABCORPon 02-07-2022 T4 [Mass/Vol] 8.6 ug/dL Normal 4.5-12.[address] [facility] Comment on above: Performed By: #### P SASC, VITAD #### [facility] [address] [place] [address] Dr. Sandy Paulson BNPon 02-06-2022 Natriuretic peptide B (Bld) [Mass/Vol] 186.0 pg/mL Normal <=900.0 [facility] Comment on above: Performed By: #### U ZAC, CMP, CRP, LIPID, T7, BNP, TSH #### [facility] [address] [place] [address] Dr. Sandy Paulson CBC AUTO DIFFon 02-06-2022 BASO # 0.1 103/ul Normal 0.0-0.1 [facility] Comment on above: Performed By: #### P SASC, VITAD #### [facility] [address] [place] [address] Dr. Sandy Paulson Basophils/100 WBC (Bld) 1.1 % Normal 0.2-2.0 [facility] Comment on above: Performed By: #### P SASC, VITAD #### [facility] [address] [place] [address] Dr. Sandy Paulson EO # 0.3 103/ul Normal 0.0-0.7 [facility] Comment on above: Performed By: #### P SASC, VITAD #### [facility] [address] [place] [address] Dr. Sandy Paulson Eosinophils/100 WBC (Bld) 4.7 % Normal 0.9-7.0 [facility] Comment on above: Performed By: #### P SASC, VITAD #### [facility] [address] [place] [address] Dr. Sandy Paulson Erythrocyte distribution width (RBC) [Ratio] 13.2 % Normal 11.0-15.0 [facility] Comment on above: Performed By: #### P SASC, VITAD #### [facility] [address] [place] [address] Dr. Sandy Paulson Hematocrit (Bld) [Volume fraction] 47.1 % Normal 42.0-54.0 [facility] Comment on above: Performed By: #### P SASC, VITAD #### [facility] [address] [address] [address] Sandy Paulson Hemoglobin (Bld) [Mass/Vol] 15.1 g/dL Normal 14.0-18.0 [facility] Comment on above: Performed By: #### P SASC, VITAD #### [facility] [address] [place] [address] Dr. Sandy Paulson IG # 0.02 10e3/ul Normal 0.00-0.03 [facility] Comment on above: Performed By: #### P SASC, VITAD #### [facility] [address] [place] [address] Dr. Sandy Paulson IG % 0.3 % Normal 0.0-0.5 [facility] Comment on above: Performed By: #### P SASC, VITAD #### [facility] [address] [place] [address] Dr. Sandy Paulson LYMPH # 2.0 103/ul Normal 1.2-3.8 [facility] Comment on above: Performed By: #### P SASC, VITAD #### [facility] [address] [place] [address] Dr. Sandy Paulson Lymphocytes/100 WBC (Bld) 26.9 % Normal 20.5-60.0 [facility] Comment on above: Performed By: #### P SASC, VITAD #### [facility] [address] [place] [address] Dr. Sandy Paulson MANUAL DIFF REQ NO Normal [facility] Comment on above: Performed By: #### P SASC, VITAD #### [facility] [address] [place] [address] Dr. Sandy Paulson MCH (RBC) [Entitic mass] 31.1 pg Normal 25.9-34.0 [facility] Comment on above: Performed By: #### P SASC, VITAD #### [facility] [address] [place] [address] Dr. Sandy Paulson MCHC (RBC) [Mass/Vol] 32.1 g/dL Normal 29.9-35.2 [facility] Comment on above: Performed By: #### P SASC, VITAD #### [facility] [address] [place] [address] Dr. Sandy Paulson MCV (RBC) [Entitic vol] 97.1 fL Critically high 80.0-94.0 [facility] Comment on above: Performed By: #### P SASC, VITAD #### [facility] [address] [place] [address] Dr. Sandy Paulson MONO # 0.6 103/ul Normal 0.3-0.8 [facility] Comment on above: Performed By: #### P SASC, VITAD #### [facility] [address] [place] [address] Dr. Sandy Paulson Monocytes/100 WBC (Bld) 7.6 % Normal 1.7-12.0 [facility] Comment on above: Performed By: #### P SASC, VITAD #### [facility] [address] [place] [address] Dr. Sandy Paulson NEUT # 4.3 103/ul Normal 1.4-6.5 [facility] Comment on above: Performed By: #### P SASC, VITAD #### [facility] Laboratory [address] [place] [address] Dr. Sandy Paulson Neutrophils/100 WBC (Bld) 59.4 % Normal 43.0-75.0 [facility] Comment on above: Performed By: #### P SASC, VITAD #### [facility] Laboratory [address] [place] [address] Dr. Sandy Paulson Platelet mean volume (Bld) [Entitic vol] 10.9 fL Normal 9.5-13.5 [facility] Comment on above: Performed By: #### P SASC, VITAD #### [facility] Laboratory [address] [place] [address] Dr. Sandy Paulson PLT 294 103/ul Normal 150-450 [facility] Comment on above: Performed By: #### P SASC, VITAD #### [facility] Laboratory [address] [place] [address] Dr. Sandy Paulson RBC 4.85 106/ul Normal 4.70-6.10 [facility] Comment on above: Performed By: #### P SASC, VITAD #### [facility] Laboratory [address] [place] [address] Dr. Sandy Paulson WBC 7.3 103/ul Normal 4.0-11.0 [facility] Comment on above: Performed By: #### P SASC, VITAD #### [facility] Laboratory [address] [place] [address] Dr. Sandy Paulson CRPon 02-06-2022 CRP [Mass/Vol] mg/L Normal <=1.0 [facility] Comment on above: Performed By: #### U ZAC, CMP, CRP, LIPID, T7, BNP, TSH #### [facility] Laboratory [address] [place] [address] Dr. Sandy Paulson FREE THYROXINE INDEX T7on FTI 3.10 Normal 1.30-4.50 [facility] Comment on above: Performed By: #### P SASC, VITAD #### [facility] Laboratory [address] [place] [address] Dr. Sandy Paulson T3U 36.0 % Normal 33.0-40.0 [facility] Comment on above: Performed By: #### P SASC, VITAD #### [facility] Laboratory [address] [place] [address] Dr. Sandy Paulson T4 [Mass/Vol] 8.60 ug/dL Normal 4.50-12.[address] [facility] Comment on above: Result Comment: T4 t esting performed by [facility] Performed By: #### P SASC, VITAD #### [facility] Laboratory [address] [place] [address] Dr. Sandy Paulson GLYCOHEMOGLOBIN A1Con 2021 ADA RECOMMENDATION SEE BELOW Normal [facility] Comment on above: Result Comment: ADA RECOMMENDED LIMIT 4.0 - 6.0 ADA THERAPEUTIC TARGET < 7.0 ACTION SUGGESTED > 7.0 Performed By: #### P SASC, VITAD #### [facility] Laboratory [address] [place] [address] Dr. Sandy Paulson Glucose [Mass/Vol] 174 mg/dL Normal [facility] Comment on above: Performed By: #### P SASC, VITAD #### [facility] Laboratory [address] [address] [address] Sandy Paulson HbA1c (Bld) [Mass fraction] 7.7 % Critically high 4.5-6.2 [facility] Comment on above: Performed By: #### P SASC, VITAD #### [facility] Laboratory [address] [address] [address] Sandy Paulson LIPID PROFILEon 02-06-2022 CHOL-HDL RATIO NORM SEE BELOW Normal [facility] Comment on above: Result Comment: 3.3 - 4.4 LOW RISK 4.4 - 7.1 AVERAGE RISK 7.1 - 11.0 MODERATE RISK >11.0 HIGH RISK Performed By: #### P SASC, VITAD #### [facility] Laboratory [address] [address] [address] Sandy Paulson Cholesterol [Mass/Vol] 224 mg/dL Critically high <=200 [facility] Comment on above: Performed By: #### P SASC, VITAD #### [facility] [address] [address] [address] Sandy Paulson Cholesterol in HDL [Mass/Vol] 34 mg/dL Critically low 40-60 [facility] Comment on above: Performed By: #### P SASC, VITAD #### [facility] [address] [address] [address] Sandy Paulson Cholesterol in LDL [Mass/Vol] 153.2 mg/dL Normal [facility] Comment on above: Performed By: #### P SASC, VITAD #### [facility] Laboratory [address] [address] [address] Sandy Paulson Cholesterol.total/Chol esterol in HDL [Mass ratio] 6.6 {ratio} Normal [facility] Comment on above: Performed By: #### P SASC, VITAD #### [facility] Laboratory [address] [address] [address] Sandy Paulson HDL NORMAL > or = 60 mg/dl - LOW CARDIOVASCULAR RISK <40 mg/dl - HIGH CARDIOVASCULAR RISK Normal [facility] Comment on above: Performed By: #### P SASC, VITAD #### [facility] [address] [address] [address] Sandy Paulson LDL CALC NORMAL SEE BELOW Normal [facility] Comment on above: Result Comment: <100 mg/dl OPTIMAL 100 - 129 mg/dl NEAR OR ABOVE OPTIMAL 130 - 159 mg/dl BORDERLINE HIGH 160 - 189 mg/dl HIGH >190 mg/dl VERY HIGH Performed By: #### P SASC, VITAD #### [facility] [address] [address] [address] Sandy Paulson Triglyceride [Mass/Vol] 184 mg/dL Critically high <=150 [facility] Comment on above: Performed By: #### P SASC, VITAD #### [facility] [address] [address] [address] Sandy Paulson VLDL CALC 36.8 mg/dL Normal [facility] Comment on above: Performed By: #### P SASC, VITAD #### [facility] [address] [place] [address] Dr. Sandy Paulson PROF 14(COMP METB)on 022 Albumin [Mass/Vol] 3.7 g/dL Normal 3.4-5.0 [facility] Comment on above: Performed By: #### U ZAC, CMP, CRP, LIPID, T7, BNP, TSH #### [facility] [address] [address] [address] Sandy Paulson Albumin/Globulin [Mass ratio] 1.0 {ratio} Normal [facility] Comment on above: Performed By: #### U ZAC, CMP, CRP, LIPID, T7, BNP, TSH #### [facility] [address] [address] [address] Sandy Paulson ALP [Catalytic activity/Vol] 68 U/L Normal 46-116 [facility] Comment on above: Performed By: #### U ZAC, CMP, CRP, LIPID, T7, BNP, TSH #### [facility] [address] [address] [address] Sandy Paulson ALT [Catalytic activity/Vol] 18 U/L Normal 16-63 [facility] Comment on above: Performed By: #### U ZAC, CMP, CRP, LIPID, T7, BNP, TSH #### [facility] [address] [address] [address] Sandy Paulson Anion gap [Moles/Vol] 12.6 mmol/L Normal Th e [facility] Comment on above: Performed By: #### U ZAC, CMP, CRP, LIPID, T7, BNP, TSH #### [facility] [address] [address] [address] Sandy Paulson AST [Catalytic activity/Vol] 14 U/L Critically low 15-37 [facility] Comment on above: Performed By: #### U ZAC, CMP, CRP, LIPID, T7, BNP, TSH #### [facility] [address] [place] [address] Dr. Sandy Paulson Bilirubin [Mass/Vol] 0.6 mg/dL Normal 0.2-1.0 [facility] Comment on above: Performed By: #### U ZAC, CMP, CRP, LIPID, T7, BNP, TSH #### [facility] [address] [address] [address] Sandy Paulson Calcium [Mass/Vol] 9.0 mg/dL Normal 8.5-10.1 [facility] Comment on above: Performed By: #### U ZAC, CMP, CRP, LIPID, T7, BNP, TSH #### [facility] [address] [address] [address] Sandy Paulson Chloride [Moles/Vol] 107 mmol/L Normal 98-107 [facility] Comment on above: Performed By: #### U ZAC, CMP, CRP, LIPID, T7, BNP, TSH #### [facility] [address] [address] [address] Sandy Paulson CO2 [Moles/Vol] 26.4 mmol/L Normal 21.0-32.0 [facility] Comment on above: Performed By: #### U ZAC, CMP, CRP, LIPID, T7, BNP, TSH #### [facility] [address] [place] [address] Dr. Sandy Paulosn Creatinine [Mass/Vol] 2.19 mg/dL Critically high 0.70-1.30 [facility] Comment on above: Performed By: #### U ZAC, CMP, CRP, LIPID, T7, BNP, TSH #### [facility] [address] [place] [address] Dr. Sandy Paulson EGFR-AF SPANISH 37 mL/min/1.73m2 Critically low >=60 [facility] Comment on above: Performed By: #### U ZAC, CMP, CRP, LIPID, T7, BNP, TSH #### [facility] [address] [address] [address] Sandy Paulson EGFR-NON AF SPANISH 31 mL/min/1.73m2 Critically low >=60 [facility] Comment on above: Performed By: #### U ZAC, CMP, CRP, LIPID, T7, BNP, TSH #### [facility] [address] [place] [address] Dr. Sandy Paulson Globulin (S) [Mass/Vol] 3.7 g/dL Normal [facility] Comment on above: Performed By: #### U ZAC, CMP, CRP, LIPID, T7, BNP, TSH #### [facility] [address] [place] [address] Dr. Sandy Paulson Glucose [Mass/Vol] 173 mg/dL Critically high 74-106 [facility] Comment on above: Performed By: #### U ZAC, CMP, CRP, LIPID, T7, BNP, TSH #### [facility] [address] [place] [address] Dr. Sandy Paulson Potassium [Moles/Vol] 5.0 mmol/L Normal 3.5-5.1 [facility] Comment on above: Performed By: #### U ZAC, CMP, CRP, LIPID, T7, BNP, TSH #### [facility] [address] [place] [address] Dr. Sandy Paulson Protein [Mass/Vol] 7.4 g/dL Normal 6.4-8.2 [facility] Comment on above: Performed By: #### U ZAC, CMP, CRP, LIPID, T7, BNP, TSH #### [facility] [address] [address] [address] Sandy Paulson Sodium [Moles/Vol] 141 mmol/L Normal 136-145 [facility] Comment on above: Performed By: #### U ZAC, CMP, CRP, LIPID, T7, BNP, TSH #### [facility] [address] [address] [address] Sandy Paulson Urea nitrogen [Mass/Vol] 25.0 mg/dL Critically high 7.0-18.0 [facility] Comment on above: Performed By: #### U ZAC, CMP, CRP, LIPID, T7, BNP, TSH #### [facility] [address] [address] [address] Sandy Paulson Urea nitrogen/Creatinine [Mass ratio] 11.4 mg/mg Normal [facility] Comment on above: Performed By: #### U ZAC, CMP, CRP, LIPID, T7, BNP, TSH #### [facility] [address] [place] [address] Dr. Sandy Paulson TSHon 02-06-2022 TSH 1.506 uIU/mL Normal 0.358-3.[address] [facility] Comment on above: Performed By: #### U ZAC, CMP, CRP, LIPID, T7, BNP, TSH #### [facility] [address] [place] [address] Dr. Sandy Paulson TSH RANGE SEE BELOW Normal [facility] Comment on above: Result Comment: <0.3 4 UIU/ml HYPERTHYROID 0.34-5.60 UIU/ml EUTHYROID >5.60 UIU/ml HYPOTHYROID Performed By: #### U ZAC, CMP, CRP, LIPID, T7, BNP, TSH #### [facility] [address] [place] [address] Dr. Sandy Paulson URIC ACID SERUMon 02-06-2022 Urate [Mass/Vol] 5.4 mg/dL Normal 3.5-7.2 [facility] Comment on above: Performed By: #### U ZAC, CMP, CRP, LIPID, T7, BNP, TSH #### [facility] [address] [place] [address] Dr. Sandy Paulson VITAMIN D 25 OHon 02-06-2022 VIT D 25-OH 38.4 ng/mL Normal [facility] Comment on above: Performed By: #### P SASC, VITAD #### [facility] [address] [place] [address] Dr. Sandy Paulson VIT D RANGES SEE BELOW Normal [facility] Comment on above: Result Comment: <20 ng/mL Vit D deficient 20 - <30 ng/mL Vit D insufficient 30 - 100 ng/mL Vit D sufficient >100 ng/mL Potential Toxicity Performed By: #### P SASC, VITAD #### [facility] [address] [place] [address] Dr. Sandy Paulson LIPID PROFILEon 10-09-2021 CHOL-HDL RATIO NORM SEE BELOW Normal [facility] Comment on above: Result Comment: 3.3 - 4.4 LOW RISK 4.4 - 7.1 AVERAGE RISK 7.1 - 11.0 MODERATE RISK >11.0 HIGH RISK Performed By: #### P SASC, VITAD #### [facility] [address] [place] [address] Dr. Sandy Paulson Cholesterol [Mass/Vol] 247 mg/dL Critically high <=200 [facility] Comment on above: Performed By: #### P SASC, VITAD #### [facility] [address] [place] [address] Dr. Sandy Paulson Cholesterol in HDL [Mass/Vol] 40 mg/dL Normal [facility] Comment on above: Performed By: #### P SASC, VITAD #### [facility] [address] [place] [address] Dr. Sandy Paulson Cholesterol in LDL [Mass/Vol] 162.6 mg/dL Normal [facility] Comment on above: Performed By: #### P SASC, VITAD #### [facility] [address] [place] [address] Dr. Sandy Paulson Cholesterol.total/Chol esterol in HDL [Mass ratio] 6.2 {ratio} Normal [facility] Comment on above: Performed By: #### P SASC, VITAD #### [facility] [address] [address] [address] Sandy Paulson HDL NORMAL > or = 60 mg/dl - LOW CARDIOVASCULAR RISK <40 mg/dl - HIGH CARDIOVASCULAR RISK Normal [facility] Comment on above: Performed By: #### P SASC, VITAD #### [facility] [address] [address] [address] Sandy Paulson LDL CALC NORMAL SEE BELOW Normal [facility] Comment on above: Result Comment: <100 mg/dl OPTIMAL 100 - 129 mg/dl NEAR OR ABOVE OPTIMAL 130 - 159 mg/dl BORDERLINE HIGH 160 - 189 mg/dl HIGH >190 mg/dl VERY HIGH Performed By: #### P SASC, VITAD #### [facility] [address] [address] [address] Sandy Paulson Triglyceride [Mass/Vol] 222 mg/dL Critically high <=150 [facility] Comment on above: Performed By: #### P SASC, VITAD #### [facility] [address] [address] [address] Sandy Paulson VLDL CALC 44.4 mg/dL Normal [facility] Comment on above: Performed By: #### P SASC, VITAD #### [facility] [address] [address] [address] Sandy Paulson MICROALB CREAT RATIO RANDOMo n 10-09-2021 mALB <1.3 Normal <=30.0 [facility] Comment on above: Performed By: #### P SASC, VITAD #### [facility] [address] [address] [address] Sandy Paulson MALB CR RATIO 8.7 mg/g Normal 0.0-29.[address] [facility] Comment on above: Performed By: #### P SASC, VITAD #### [facility] [address] [place] [address] Dr. Sandy Paulson MALB CR RATIO RANGE SEE BELOW Normal [facility] Comment on above: Result Comment: NO M ICROALBUMINURIA 0-29 MG/G CLINICAL MICROALBUMINURIA 30-300 MG/G MACROALBUMINURIA >300 MG/G Performed By: #### P SASC, VITAD #### [facility] [address] [address] [address] Sandy Paulson URINE CREAT 148.75 mg/dL Normal 20.00-300.00 [facility] Comment on above: Performed By: #### P SASC, VITAD #### [facility] [address] [address] [address] Sandy Paulson RENAL FUNCTION PANELon 10-09 Albumin [Mass/Vol] 3.9 g/dL Normal 3.5-5.0 [facility] Comment on above: Performed By: #### P SASC, VITAD #### [facility] [address] [address] [address] Sandy Paulson Calcium [Mass/Vol] 9.5 mg/dL Normal 8.4-10.2 [facility] Comment on above: Performed By: #### P SASC, VITAD #### [facility] [address] [place] [address] Dr. Sandy Paulson Chloride [Moles/Vol] 105 mmol/L Normal 98-107 [facility] Comment on above: Performed By: #### P SASC, VITAD #### [facility] [address] [place] [address] Dr. Sandy Paulson CO2 [Moles/Vol] 27.6 mmol/L Normal 22.0-30.0 [facility] Comment on above: Performed By: #### P SASC, VITAD #### [facility] [address] [place] [address] Dr. Sandy Paulson Creatinine [Mass/Vol] 2.04 mg/dL Critically high 0.66-1.25 [facility] Comment on above: Performed By: #### P SASC, VITAD #### [facility] [address] [place] [address] Dr. Sandy Paulson EGFR-AF SPANISH 41 mL/min/1.73m2 Critically low >=60 [facility] Comment on above: Performed By: #### P SASC, VITAD #### [facility] [address] [place] [address] Dr. Sandy Paulson EGFR-NON AF SPANISH 33 mL/min/1.73m2 Critically low >=60 [facility] Comment on above: Performed By: #### P SASC, VITAD #### [facility] [address] [address] [address] Sandy Paulson Glucose [Mass/Vol] 198 mg/dL Critically high 74-106 [facility] Comment on above: Performed By: #### P SASC, VITAD #### [facility] [address] [address] [address] Sandy Paulson Phosphate [Mass/Vol] 3.3 mg/dL Normal 2.5-4.5 [facility] Comment on above: Performed By: #### P SASC, VITAD #### [facility] [address] [place] [address] Dr. Sandy Paulson Potassium [Moles/Vol] 4.8 mmol/L Normal 3.4-5.0 [facility] Comment on above: Performed By: #### P SASC, VITAD #### [facility] [address] [place] [address] Dr. Sandy Paulson Sodium [Moles/Vol] 141 mmol/L Normal 137-145 [facility] Comment on above: Performed By: #### P SASC, VITAD #### [facility] [address] [place] [address] Dr. Sandy Paulson Urea nitrogen [Mass/Vol] 30.0 mg/dL Critically high 9.0-20.0 [facility] Comment on above: Performed By: #### P SASC, VITAD #### [facility] [address] [place] [address] Dr. Sandy Paulson VITAMIN D 25 OHon 10-09-2021 VIT D 25-OH 33.6 ng/mL Normal [facility] Comment on above: Performed By: #### P SASC, VITAD #### [facility] [address] [place] [address] Dr. Sandy Paulson VIT D RANGES SEE BELOW Normal [facility] Comment on above: Result Comment: <20 ng/mL Vit D deficient 20 - <30 ng/mL Vit D insufficient 30 - 100 ng/mL Vit D sufficient >100 ng/mL Potential Toxicity Performed By: #### P SAS, VITAD #### [facility] [address] [place] [address] Dr. Sandy Paulson Vital Signs Date Time Vital Sign Value Performing Clinician Daja salinas 04-05-2025 09:37-0400 Body height 190.5 cm Davey Sy MD Work Phone: [facility] 04-05-2025 09:37-0400 Body mass index (BMI) [Ratio] 42.62 kg/m2 Davey Sy MD Work Phone: [facility] 04-05-2025 09:37-0400 Body weight 154.68 kg Davey Sy MD Work Phone: [facility] 04-05-2025 09:37-0400 Diastolic blood pressure 78 mm[Hg] Davey Sy MD Work Phone: [facility] 04-05-2025 09:37-0400 Heart rate 63 /min Davey Sy MD Work Phone: [facility] 04-05-2025 09:37-0400 Respiratory rate 16 /min Davey Sy MD Work Phone: [facility] 04-05-2025 09:37-0400 SaO2% (BldA) [Mass fraction] 99 % Davey Sy MD Work Phone: [facility] 04-05-2025 09:37-0400 Systolic blood pressure 154 mm[Hg] Davey Sy MD Work Phone: [facility] 10-05-2024 09:17-0500 Body height 190.5 cm Davey Sy MD Work Phone: [facility] 10-05-2024 09:17-0500 Body mass index (BMI) [Ratio] 41.5 kg/m2 Davey Sy MD Work Phone: [facility] 10-05-2024 09:17-0500 Body weight 150.59 kg Davey Sy MD Work Phone: [facility] 10-05-2024 09:17-0500 Diastolic blood pressure 78 mm[Hg] Davey Sy MD Work Phone: [facility] 10-05-2024 09:17-0500 Heart rate 59 /min Davey Sy MD Work Phone: [facility] 10-05-2024 09:17-0500 Respiratory rate 16 /min Davey Sy MD Work Phone: [facility] 10-05-2024 09:17-0500 SaO2% (BldA) [Mass fraction] 96 % Davey Sy MD Work Phone: [facility] 10-05-2024 09:17-0500 Systolic blood pressure 140 mm[Hg] Davey Sy MD Work Phone: [facility] Healthcare Encounters Encounter Date Encounter Type Care Provider Facility Start: 04-05-2025 End: 04-05-2025 Bamboo flowsheet Davey Sy MD Work Phone: [facility] Start: 04-05-2025 End: 04-05-2025 [email or web address] Davey Sy MD Work Phone: [facility] Start: 04-05-2025 End: 04-05-2025 Office outpatient visit 25 minutes Davey Sy MD Work Phone: [facility] Comment on above: Type 2 diabetes louise itus with hyperglycemia, without long-term current use of insulin (HCC) (Primary Dx); Essential (primary) hypertension ; Vitamin D deficiency, unspecified; Mixed hyperlipidemia ; Stage 3b chronic kidney disease ([facility]-HCC); Vitamin D deficiency; Encounter for dietary consultation; Class 3 severe obesity due to excess calories with serious comorbidity and body mass index (BMI) of 40.0 to 44.9 in adult ([facility]) Start: 04-05-2025 End: 04-05-2025 ambulatory DAVEY SY Not Available Start: 12-07-2024 End: 12-07-2024 Refill Davey Sy MD Work Phone: [facility] Comment on above: Type 2 diabetes louise itus with other circulatory complications Start: 10-05-2024 End: 10-05-2024 Bamboo flowsheet Davey Sy MD Work Phone: [facility] Start: 10-05-2024 End: 10-05-2024 Bamboo flowsheet Davey Sy MD Work Phone: [facility] Start: 10-05-2024 End: 10-05-2024 Office outpatient visit 25 minutes Davey Sy MD Work Phone: [facility] Comment on above: Type 2 diabetes louise itus with hyperglycemia, without long-term current use of insulin (CMS/HCC) (Primary Dx); Essential (primary) hypertension (CMS/HCC); Vitamin D deficiency, unspecified; Mixed hyperlipidemia (CMS/HCC); Stage 3b chronic kidney disease (HCC) (CMS/HCC); Vitamin D deficiency; Encounter for dietary consultation; Class 2 severe obesity due to excess calories with serious comorbidity and body mass index (BMI) of 38.0 to 38.9 in adult (CMS/HCC) Start: 10-05-2024 End: 10-05-2024 ambulatory DAVEY SY Not Available Start: 07-10-2024 End: 07-10-2024 Refill Davey Sy MD Work Phone: [facility] Comment on above: Type 2 diabetes louise itus with other circulatory complications (CMS/HCC) Start: 05-04-2024 End: 05-04-2024 [facility]: 10-28-2023 End: 10-28-2023 ambulatory MAGNUS CHAIDEZCKER [facility] Start: 10-01-2022 End: 10-02-2022 ambulatory DAVEY SY Facility:[facility] Start: 02-06-2022 End: 02-07-[address] JILLIAN PEREYRA Facility:[facility] Start: 10-09-2021 End: 10-10-2021 ambulatory DAVEY SY Facility:[facility] Procedures Date Procedure Procedure Detail Performing Clinician Start: 04-05-2025 Gluc bld gluc mntr d ev cleared fda spec home use Davey Sy MD Work Phone: Start: 10-05-2024 Gluc bld gluc mntr d ev cleared fda spec home use Davey Sy MD Work Phone: Start: 02-06-2022 [facility] screening [facility] Comment on above: Performed By: #### P SASC, VITAD #### [facility] [address] [place] [address] Dr. Sandy Paulson Plan of Treatment Date Care Activity Detail Author Start: 10-04-2025 End: 10-04-2025 Patient encounter procedure 10/04/2025 9:50 AM EST [facility] [id number] [place] [id number] Davey Sy MD [address] [place] [address] [facility] Start: 05-02-2025 Influenza vaccination Influenza Vacc ine (#1) [facility] Start: 04-05-2025 End: 04-05-2025 Patient encounter procedure [facility] Comment on above: Type 2 diabetes louise itus with hyperglycemia, without long-term current use of insulin ([facility]) Start: 10-05-2024 End: 10-05-2025 25-hydroxyvitamin D3 [Mass/volume] in Serum or Plasma Vitamin D 25 hydroxy Total Lab Routine Type 2 diabetes mellitus with hyperglycemia, without long-term current use of insulin ([facility]) Expected: 10/05/2024 (Approximate), Expires: 10/05/2025 [facility] Work Phone: Comment on above: Expected: 10/05/2024 (Approximate), Expires: 10/05/2025 Start: 10-05-2024 End: 10-05-2025 Lipid 1996 panel - Serum or Plasma Lipid panel Lab Routine Type 2 diabetes mellitus with hyperglycemia, without long-term current use of insulin ([facility]) Expected: 10/05/2024 (Approximate), Expires: 10/05/2025 [facility] Comment on above: Expected: 10/05/2024 (Approximate), Expires: 10/05/2025 Start: 10-05-2024 End: 10-05-2025 Microalbumin/Creatini ne panel in random Urine Microalbumin / creatinine urine ratio Lab Routine Type 2 diabetes mellitus with hyperglycemia, without long-term current use of insulin ([facility]) Expected: 10/05/2024 (Approximate), Expires: 10/05/2025 [facility] Comment on above: Expected: 10/05/2024 (Approximate), Expires: 10/05/2025 Start: 10-05-2024 End: 10-05-2025 Renal function panel Renal function panel Lab Routine Type 2 diabetes mellitus with hyperglycemia, without long-term current use of insulin ([facility]) Expected: 10/05/2024 (Approximate), Expires: 10/05/2025 [facility] Comment on above: Expected: 10/05/2024 (Approximate), Expires: 10/05/2025 Start: 10-05-2024 End: 10-05-2024 Patient encounter procedure [facility] Comment on above: Type 2 diabetes louise itus with hyperglycemia, without long-term current use of insulin ([facility]) Start: 05-02-2024 Influenza vaccination Influenza Vacc ine (#1) [facility] Start: 1960 Screening for malignant neoplasm of colon [facility] Immunizations Immunization Date Immunization Notes Care Provider [facility] 06-06-2024 influenza virus vacc ine, unspecified formulation Davey Sy MD Work Phone: [facility] 06-05-2023 influenza virus vacc ine, unspecified formulation Davey Sy MD Work Phone: [facility] Payers Date Payer Category Payer Medicare (Managed Care) [employer] [id number] 2024 Medicare [id number] 2020 Unknown [id number] 1960 Unknown [id number] 1960 Unknown [id number] 1960 Unknown [id number] 1960 Unknown [id number] 1960 Unknown [id number] 1959 Unknown [id number] Social History Date Type Detail Facility Tobacco smoking stat [facility] Tobacco smoking consumption unknown [facility] Start: 1960 Sex assigned at Not on file [facility] Gender identity Not on file [facility] are Start: 1960 Sex assigned at Male [facility] Start: 09-28-2024 Gender identity Identifies as male gender (finding) [facility] Start: 09-28-2024 Sexual orientation Heterosexual (fin ding) [facility] History of Present illness Narrative 04-05-2025 Davey Sy MD - 04/05/2025 9:30 AM EDT Note Date & Type Note Facility 04-05-2025 History of Presen t illness Narrative Hilario Francis is a 64 y.o. male No ref. provider found presents with chief complaint of Diabetes and Follow-up (LAB) HPI: Interim History: 04/2025 Followup visit on 04/05/2025 for type 2 diabetes. A1c 5.7 BG in the office 121. He is on glipizide 10 mg twice a day, Actos 45, Ozempic 2 mg once weekly, lab in March/2025 kidney function GFR 49, total cholesterol 107, HDL 43, triglycerides 90, LDL 46, unable to calculate albumin over creatinine ratio. Interim History: 10/2024 Followup visit on 10/05/2024 for type 2 diabetes. A1c 6.2 BG in the office 145. He is on glipizide 10 mg twice a day, Actos 45, Ozempic 2 mg once weekly, Interim History: 04/2024 Followup visit on 04/06/2024 for type 2 diabetes. A1c 5.7 on 03/2024 with his PCP, BG in the office 137. He is on glipizide 10 mg twice a day, Actos 45, Ozempic 2 mg once weekly, A1c 5.7 , BG 137, lab on 03/2024 al/cr 84, vit d 33, GFR 48, TC 114,HDL 42, LDL 55. Interim History: 10/2023 Followup visit on 10/07/2023 for type 2 diabetes. He is on glipizide 10 mg twice a day, Actos 45, Ozempic 2 mg once weekly, A1c 6.9 , BG 150, meter 0-100-0%. avg 133 Interim History: 03/2023 Followup visit on 03/11/2023 for type 2 diabetes. He is on glipizide 10 mg twice a day, Actos 45, Ozempic 2 mg once weekly, A1c 6.8 , BG 128, meter 0-58-42%. avg 164, GFR 42 on 03/2023. Interim History: 10/2022 Followup visit on 11/05/2022 for type 2 diabetes. He is on glipizide 10 mg twice a day, Actos 30, Ozempic 1 mg once weekly, A1c 9.1, BG 193, meter 81%-19%. lab pending said GFR 31 Interim History: 05/2022 Followup visit on 05/14/2022 for type 2 diabetes. He is on glipizide 10 mg twice a day, Actos 30, Ozempic 1 mg once weekly, A1c 7.3 , , meter 175-212, avg 200. Interim History: 10/2021 Followup visit on 11/15/2021 for type 2 diabetes. He is on glipizide 10 mg twice a day, Actos 30, Ozempic 0.5 mg once weekly, A1c 7.9, , meter 205. meter 157-254, avg 196 Interim History: 05/2021. Followup visit on 05/17/2021 for type 2 diabetes. He is on glipizide 10 mg twice a day, Actos 30, Ozempic 0.5 mg once weekly, A1c 6.6, meter 157. meter 132-164 Interim History: 10/2020. Followup visit on 10/2020 for type 2 diabetes. He is on glipizide 10 mg twice a day, Actos 30, Ozempic 0.5 mg once weekly, A1c 6.6, meter 144. meter 78-162, avg 131. LAB in 10/2020 GFR 30, TC 210, HDL 33, TG 155, LDL 141, VIT D 34 Interim History: 05/2020. Followup visit on 05/2020 for type 2 diabetes. He is on glipizide 10 mg twice a day, Actos 30, Ozempic 0.5 mg once weekly, A1c 6.3, meter 137. meter 82-233, avg 144 Interim History: 01/2020. Followup visit on 02/04/2020 for type 2 diabetes. We spoke with him with telephone encounter and he is off metformin. He thinks his GI symptoms get better, but he gained weight 15 pounds since last visit since he is off the hydrochlorothiazide, also thinking that is going to affect bad on his addiction. He is on glipizide 10 mg twice a day, Actos 30, Ozempic 0.5 mg once weekly and he want me to send tablets through his pharmacy. Interim History: 10/2019. Follow-up visit of 10/07/2019 for type 2 diabetes. A1c in the office 5.7, blood sugar 97. Blood sugar lowest 77, highest 167, and average 107. Labs done; BUN 35, creatinine 2.19, GRF 31, total cholesterol 195, HDL 35, triglycerides 158, LDL 122, and vitamin D 31. He is on metformin 1000 twice a day, glipizide 10 mg twice a day, Actos 30, and Ozepmic 0.5 mg once weekly. We will stop metformin due to consistent GFR on the low side. Interim History: 07/20: Followup visit on 07/15/19 for type 2 diabetes. A1c in the office 5.7. Blood sugar 133. Meters, lowest 92, highest 177, average 0.9, and average 127. Labs done: Hemoglobin 14, hematocrit 41. BUN 38, creatinine 2.1, and GFR 31. He is not aware it was 57 before, so we will keep our eye on it. C-peptide 5.5, vitamin D 30. Total cholesterol 193, HDL 30, and triglycerides 311. His primary care doctor ordered fenofibrate for him. LDL 100. TSH 1.46, free T4 1.48 (0.7-2.19). He is currently on metformin 1000 twice a day, glipizide 10 mg twice a day, Ozempic 0.5, and Actos 30. Interim History 04/19: Followup visit on 04/26/2019 for type 2 diabetes. A1c in the office is 6.3. Meter lowest is 97, highest 209, average 102. Blood sugar 138 average. He is on Ozempic now 0.5 once weekly and glipizide 10 mg twice a day, metformin 1000 twice a day, Actos 30 mg once a day. Interim History 02/17: Followup visit on 02/25/2019 for type 2 diabetes. Last visit, we continued with his medication, metformin, glipizide, Actos, and we added Jardiance but he stopped it due to possible yeast infection, and he wants to stop it. He is here to discuss other options, either Trulicity or basal insulin. HPI: 01/17 New patient sent from [facility] for uncontrolled diabetes. Labs done in August 2018: Insulin 24, BUN 15, creatinine 1.3, GFR 57, total cholesterol 228, triglycerides 230, HDL 57, LDL calculated 144. A1c 8.4. A1c in the office is 7.9. He is on metformin 1000 twice a day, glipizide 10 mg twice a day, and Actos 30. He is not interested with insulin coverage with needle. He has a history of CDL with gaining back. No heart disease. He is willing to try new medication to keep blood sugars under good control. His daughter is at bedside and to recommend to control his blood sugar. SUBJECTIVE: MEDICATIONS: Current Outpatient Medications Medication Instructions aspirin 81 mg, Daily atorvastatin (LIPITOR) 80 mg, Daily carvedilol (COREG) 3.125 mg diclofenac (VOLTAREN) 75 mg, 2 times daily PRN dilTIAZem CD (CARDIZEM CD) 300 mg, Daily fenofibrate (TRICOR) 145 mg, Daily glipiZIDE (GLUCOTROL) 10 mg, Oral, 2 times daily before meals isosorbide mononitrate ER (IMDUR) 30 mg, Daily lisinopril 20 mg, Daily Ozempic (2 MG/DOSE) 2 mg, Subcutaneous, Every 7 days pioglitazone (ACTOS) 45 mg, Oral, Daily ALLERGIES: Allergies Allergen Reactions Januvia [Sitagliptin] Past Medical History: Diagnosis Date Chronic kidney disease (CKD), stage III (moderate) ([facility]) Chronic low back pain Essential (primary) hypertension Mixed hyperlipidemia Other fatigue Stroke (HCC) Type 2 diabetes mellitus with other circulatory complications (HCC) Vitamin D deficiency, unspecified No past surgical history on file. REVIEW OF SYMPTOMS: 14 POINT OF SYSTEM REVIEWED AND NEGATIVE OBJECTIVE: Constitutional: Afebrile @ home; no weakness or night sweats SKIN: No change in skin color; no itching, rash or lesions; no hair loss; HEENT: No HAs or injury; no dizziness; No difficulty with vision; no eye pain, discharge or lesions; no hearing loss or difficulty; no nasal discharge, NECK: No pain, limitation of motion, lumps or swollen glands RESP: No cough, wheezing or difficulty breathing. No CP with breathing; CARDIO: No CP , SOB or fatigue, No edema, palpitations or dyspnea with exertion GI: No N/V/D or abd. pain; good appetite with no recent change. No heart burn, liver or gallbladder disease; no rectal bleeding or pain : No urinary pain , frequency or odor. MUSCULOSKELETAL: No muscle pain or cramps; no extremity weakness.No joint pain, stiffness, swelling or limitation of movement NEUROLOGY: No H/O seizures, stroke or fainting. No weakness, tremors. Hematology: No bleeding problems or excessive bruising ENDOCRINE: No increase in hunger, thirst or urination; admits compliance to medical management plan Feet: numbness tingling yes , ulcers or skin break no Lab Results Component Value Date HGBA1C 5.7 04/05/2025 HGBA1C 6.2 10/05/2024 Lab Results Component Value Date GLU 121 04/05/2025 GLU 145 10/05/2024 Visit Vitals BP 154/78 Pulse 63 Resp 16 Ht 6' 3 Wt 341 lb SpO2 99% BMI 42.62 kg/m BSA 2.86 m ASSESSMENT AND PLAN: Assessment/Plan Diagnoses and all orders for this visit: Type 2 diabetes mellitus with hyperglycemia, without long-term current use of insulin (HCC) - POCT glucose manually resulted - POCT glycosylated hemoglobin (Hb A1C) docked device - glipiZIDE (Glucotrol) 10 MG tablet; Take 1 tablet (10 mg) by mouth 2 (two) times a day before meals - pioglitazone (Actos) 45 MG tablet; Take 1 tablet (45 mg) by mouth Daily - Semaglutide, 2 MG/DOSE, (Ozempic, 2 MG/DOSE,) 8 MG/3ML solution pen-injector; Inject 2 mg under the skin every 7 (seven) days Continue with glipizide 10 mg twice a day, Actos 45 mg once a day, Ozempic 2 mg once weekly. Essential (primary) hypertension Vitamin D deficiency, unspecified Mixed hyperlipidemia Stage 3b chronic kidney disease ([facility]) Vitamin D deficiency Encounter for dietary consultation Class 3 severe obesity due to excess calories with serious comorbidity and body mass index (BMI) of 40.0 to 44.9 in adult ([facility]) Diet and exercise reviewed with the patient Follow up in about 6 months (around 10/06/2025). documented in this encounter [facility] History of Present illness Narrative 10-05-2024 Davey Sy MD - 10/05/2024 9:40 AM EST Note Date & Type Note Facility 10-05-2024 History of Presen t illness Narrative Hilario Francis is a 63 y.o. male Davey Sy MD presents with chief complaint of Diabetes and Follow-up HPI: Interim History: 10/2024 Followup visit on 10/05/2024 for type 2 diabetes. A1c 6.2 BG in the office 145. He is on glipizide 10 mg twice a day, Actos 45, Ozempic 2 mg once weekly, Interim History: 04/2024 Followup visit on 04/06/2024 for type 2 diabetes. A1c 5.7 on 03/2024 with his PCP, BG in the office 137. He is on glipizide 10 mg twice a day, Actos 45, Ozempic 2 mg once weekly, A1c 5.7 , BG 137, lab on 03/2024 al/cr 84, vit d 33, GFR 48, TC 114,HDL 42, LDL 55. Interim History: 10/2023 Followup visit on 10/07/2023 for type 2 diabetes. He is on glipizide 10 mg twice a day, Actos 45, Ozempic 2 mg once weekly, A1c 6.9 , BG 150, meter 0-100-0%. avg 133 Interim History: 03/2023 Followup visit on 03/11/2023 for type 2 diabetes. He is on glipizide 10 mg twice a day, Actos 45, Ozempic 2 mg once weekly, A1c 6.8 , BG 128, meter 0-58-42%. avg 164, GFR 42 on 03/2023. Interim History: 10/2022 Followup visit on 11/05/2022 for type 2 diabetes. He is on glipizide 10 mg twice a day, Actos 30, Ozempic 1 mg once weekly, A1c 9.1, BG 193, meter 81%-19%. lab pending said GFR 31 Interim History: 05/2022 Followup visit on 05/14/2022 for type 2 diabetes. He is on glipizide 10 mg twice a day, Actos 30, Ozempic 1 mg once weekly, A1c 7.3 , , meter 175-212, avg 200. Interim History: 10/2021 Followup visit on 11/15/2021 for type 2 diabetes. He is on glipizide 10 mg twice a day, Actos 30, Ozempic 0.5 mg once weekly, A1c 7.9, , meter 205. meter 157-254, avg 196 Interim History: 05/2021. Followup visit on 05/17/2021 for type 2 diabetes. He is on glipizide 10 mg twice a day, Actos 30, Ozempic 0.5 mg once weekly, A1c 6.6, meter 157. meter 132-164 Interim History: 10/2020. Followup visit on 10/2020 for type 2 diabetes. He is on glipizide 10 mg twice a day, Actos 30, Ozempic 0.5 mg once weekly, A1c 6.6, meter 144. meter 78-162, avg 131. LAB in 10/2020 GFR 30, TC 210, HDL 33, TG 155, LDL 141, VIT D 34 Interim History: 05/2020. Followup visit on 05/2020 for type 2 diabetes. He is on glipizide 10 mg twice a day, Actos 30, Ozempic 0.5 mg once weekly, A1c 6.3, meter 137. meter 82-233, avg 144 Interim History: 01/2020. Followup visit on 02/04/2020 for type 2 diabetes. We spoke with him with telephone encounter and he is off metformin. He thinks his GI symptoms get better, but he gained weight 15 pounds since last visit since he is off the hydrochlorothiazide, also thinking that is going to affect bad on his addiction. He is on glipizide 10 mg twice a day, Actos 30, Ozempic 0.5 mg once weekly and he want me to send tablets through his pharmacy. Interim History: 10/2019. Follow-up visit of 10/07/2019 for type 2 diabetes. A1c in the office 5.7, blood sugar 97. Blood sugar lowest 77, highest 167, and average 107. Labs done; BUN 35, creatinine 2.19, GRF 31, total cholesterol 195, HDL 35, triglycerides 158, LDL 122, and vitamin D 31. He is on metformin 1000 twice a day, glipizide 10 mg twice a day, Actos 30, and Ozepmic 0.5 mg once weekly. We will stop metformin due to consistent GFR on the low side. Interim History: 07/20: Followup visit on 07/15/19 for type 2 diabetes. A1c in the office 5.7. Blood sugar 133. Meters, lowest 92, highest 177, average 0.9, and average 127. Labs done: Hemoglobin 14, hematocrit 41. BUN 38, creatinine 2.1, and GFR 31. He is not aware it was 57 before, so we will keep our eye on it. C-peptide 5.5, vitamin D 30. Total cholesterol 193, HDL 30, and triglycerides 311. His primary care doctor ordered fenofibrate for him. LDL 100. TSH 1.46, free T4 1.48 (0.7-2.19). He is currently on metformin 1000 twice a day, glipizide 10 mg twice a day, Ozempic 0.5, and Actos 30. Interim History 04/19: Followup visit on 04/26/2019 for type 2 diabetes. A1c in the office is 6.3. Meter lowest is 97, highest 209, average 102. Blood sugar 138 average. He is on Ozempic now 0.5 once weekly and glipizide 10 mg twice a day, metformin 1000 twice a day, Actos 30 mg once a day. Interim History 02/17: Followup visit on 02/25/2019 for type 2 diabetes. Last visit, we continued with his medication, metformin, glipizide, Actos, and we added Jardiance but he stopped it due to possible yeast infection, and he wants to stop it. He is here to discuss other options, either Trulicity or basal insulin. HPI: 01/17 New patient sent from [facility] for uncontrolled diabetes. Labs done in August 2018: Insulin 24, BUN 15, creatinine 1.3, GFR 57, total cholesterol 228, triglycerides 230, HDL 57, LDL calculated 144. A1c 8.4. A1c in the office is 7.9. He is on metformin 1000 twice a day, glipizide 10 mg twice a day, and Actos 30. He is not interested with insulin coverage with needle. He has a history of CDL with gaining back. No heart disease. He is willing to try new medication to keep blood sugars under good control. His daughter is at bedside and to recommend to control his blood sugar. SUBJECTIVE: MEDICATIONS: Current Outpatient Medications Medication Instructions aspirin 81 mg, Daily atorvastatin (LIPITOR) 80 mg, Daily carvedilol (COREG) 3.125 mg diclofenac (VOLTAREN) 75 mg, 2 times daily PRN dilTIAZem CD (CARDIZEM CD) 300 mg, Daily fenofibrate (TRICOR) 145 mg, Daily glipiZIDE (Glucotrol) 10 MG tablet TAKE 1 TABLET (10 MG) BY MOUTH 2 TIMES PER DAY 30 MINUTES BEFORE MEALS isosorbide mononitrate ER (IMDUR) 30 mg, Daily lisinopril 20 mg, Daily Ozempic (2 MG/DOSE) 2 mg, Weekly pioglitazone (ACTOS) 45 mg, Oral, Daily ALLERGIES: Allergies Allergen Reactions Januvia [Sitagliptin] Past Medical History: Diagnosis Date Chronic kidney disease (CKD), stage III (moderate) (HCC) ([facility]) Chronic low back pain Essential (primary) hypertension ([facility]) Mixed hyperlipidemia ([facility]) Other fatigue Stroke ([facility]) Type 2 diabetes mellitus with other circulatory complications ([facility]) Vitamin D deficiency, unspecified No past surgical history on file. REVIEW OF SYMPTOMS: 14 POINT OF SYSTEM REVIEWED AND NEGATIVE OBJECTIVE: Constitutional: Afebrile @ home; no weakness or night sweats SKIN: No change in skin color; no itching, rash or lesions; no hair loss; HEENT: No HAs or injury; no dizziness; No difficulty with vision; no eye pain, discharge or lesions; no hearing loss or difficulty; no nasal discharge, NECK: No pain, limitation of motion, lumps or swollen glands RESP: No cough, wheezing or difficulty breathing. No CP with breathing; CARDIO: No CP , SOB or fatigue, No edema, palpitations or dyspnea with exertion GI: No N/V/D or abd. pain; good appetite with no recent change. No heart burn, liver or gallbladder disease; no rectal bleeding or pain : No urinary pain , frequency or odor. MUSCULOSKELETAL: No muscle pain or cramps; no extremity weakness.No joint pain, stiffness, swelling or limitation of movement NEUROLOGY: No H/O seizures, stroke or fainting. No weakness, tremors. Hematology: No bleeding problems or excessive bruising ENDOCRINE: No increase in hunger, thirst or urination; admits compliance to medical management plan Feet: numbness tingling yes , ulcers or skin break no Lab Results Component Value Date HGBA1C 6.2 10/05/2024 Lab Results Component Value Date GLU 145 10/05/2024 Visit Vitals BP 140/78 Pulse 59 Resp 16 Ht 6' 3 Wt 332 lb SpO2 96% BMI 41.50 kg/m BSA 2.83 m ASSESSMENT AND PLAN: Assessment/Plan Diagnoses and all orders for this visit: Type 2 diabetes mellitus with hyperglycemia, without long-term current use of insulin ([facility]) - POCT glucose manually resulted - POCT glycosylated hemoglobin (Hb A1C) docked device - Vitamin D 25 hydroxy Total; Future - Microalbumin / creatinine urine ratio; Future - Lipid panel; Future - Renal function panel; Future Continue glipizide 10 mg twice a day, Actos 45, Ozempic 2 mg once weekly we will check lab before next visit in 6 months and adjust. Essential (primary) hypertension (CMS/HCC) Vitamin D deficiency, unspecified Mixed hyperlipidemia (CMS/HCC) Stage 3b chronic kidney disease (HCC) ([facility]) Vitamin D deficiency Encounter for dietary consultation Diet and exercise reviewed with the patient Class 2 severe obesity due to excess calories with serious comorbidity and body mass index (BMI) of 38.0 to 38.9 in adult ([facility]) Follow up in about 6 months (around 04/04/2025). documented in this encounter [facility] Progress note 05-04-2024 Note Date & Type Note Facility 05-04-2024 Note [facility] Cardiology Clinic Note Chief Complaint: Patient [...] a past medical history of Diabetes mellitus ([facility]), Hypotension, and Stroke ([facility]). Surgical History He has no past surgical [...] include aspirin, high intensity statin therapy, a beta-matilde and given his diabetes RAAS inhibitor Will [...] function. Right ventricle is mildly dilated with (more content not included)... [facility] Progress note 10-28-2023 Note Date & Type Note Facility 10-28-2023 Note Patient here for 6 m o follow up CAD, dyslipidemia, and hypertension. Had DAWSON's in Jun 2023. Denies chest pain, SOB, and palpitations. Still has claudication but no worse than usual. Review of Systems Cardiovascular: Positive for claudication. All other systems reviewed and are negative. [facility] Progress note 10-28-2023 Note Date & Type Note Facility 10-28-2023 Note Cardiovascular Medic [facility] SUBJECTIVE Chief Complaint Patient presents with Coronary Artery Disease Hypertension Hyperlipidemia Hilario Francis is a 63 y.o. male here for follow-up. His daughter accompanied him today. HPI PMHx: CAD (subtotal occlusion to diag and mild to mod dz in LAD/Lcx/RCA), HTN, HLD, CKD, DM type II, CVA He denies any changes since last seen. He is not very active. He gets SOB with minimal exertion. He c/o getting easily fatigued. He c/o bilateral leg weakness. His legs feel heavy. He denies pain in his legs when walking or resting. This has been ongoing since his CVA. He gets some mild leg swelling if he is on his feet a lot. BP at home averaging 120s/80s. Can be lower at times at well. Denies CP, orthopnea, PND, dizziness/LH, palpitations, syncope. Patient Active Problem List Diagnosis Abnormal stress test Abnormal result of other cardiovascular function study Coronary artery disease involving [place] coronary artery of [place] heart without angina pectoris Cerebral infarction, unspecified ([facility]) Chronic kidney disease, unspecified Other specified diabetes mellitus with other specified complication ([facility]) Dyspnea Hyperlipidemia, unspecified PVD (peripheral vascular disease) ([facility]) Past Medical History: Diagnosis Date Diabetes mellitus ([facility]) Hypotension Stroke ([facility]) Family History Problem Relation Name Age of Onset Coronary artery disease Father Other (CABG) Father Social History Tobacco Use Smoking status: Never Smokeless tobacco: Current Types: Chew Substance Use Topics Alcohol use: Not Currently No Known Allergies Review of Systems Constitutional: Positive for malaise/fatigue. Negative for chills, fever and weight gain. Cardiovascular: Negative for chest pain, claudication, dyspnea on exertion, irregular heartbeat, leg swelling, near-syncope, orthopnea, palpitations, paroxysmal nocturnal dyspnea and syncope. OBJECTIVE Visit Vitals BP 138/82 (BP Location: Left arm, Patient Position: Sitting) Pulse 76 Ht 1.88 m (6' 2 ) Wt (!) 152 kg (335 lb) SpO2 97% BMI 43.01 kg/m??? Smoking Status Never BSA 2.82 m??? Medications: Current Outpatient Medications: aspirin 81 mg EC tablet, Take 1 tablet (81 mg) by mouth in the morning., Disp: 90 tablet, Rfl: 3 diclofenac (Voltaren) 75 mg [...] mouth in the morning., Disp: , Rfl: lisinopril 20 mg tablet, Take 20 mg by mouth in the morning., Disp: , Rfl: Ozempic 2 mg/dose (8 mg/3 mL) pen injector, Inject 8 mg/mL under the skin 1 (one) time per week., Disp: , Rfl: pioglitazone (Actos) 30 mg tablet, Take 45 mg by mouth in the morning., Disp: , Rfl: atorvastatin (Lipitor) 80 mg tablet, Take 1 tablet (80 mg) by mouth at bedtime., Disp: 90 tablet, Rfl: 3 carvedilol (Coreg) 3.125 mg tablet, Take 1 tablet (3.125 mg) by mouth with breakfast and with evening meal., Disp: 180 tablet, Rfl: 3 isosorbide mononitrate ER (Imdur) 30 mg 24 hr tablet, Take 1 tablet (30 mg) by mouth once daily as directed. Do not crush or chew., Disp: 90 tablet, Rfl: 3 Physical Exam Constitutional: Appearance: Normal appearance. He is obese. HENT: Head: Normocephalic and atraumatic. Right Ear: External ear normal. Left Ear: External ear normal. Eyes: Extraocular Movements: Extraocular movements intact. Pupils: Pupils are equal, round, and reactive to light. Neck: Vascular: No carotid bruit. Cardiovascular: Rate and Rhythm: Normal rate and regular rhythm. Pulses: Normal pulses. Heart sounds: Normal heart sounds. Pulmonary: Effort: Pulmonary effort is normal. Breath sounds: Normal breath sounds. Abdominal: General: Bowel sounds are normal. Palpations: Abdomen is soft. Musculoskeletal: General: Normal range of motion. Cervical back: Neck supple. Right lower leg: Edema present. Left lower leg: Edema present. Comments: Trace edema, L>R Skin: General: Skin is warm and dry. Neurological: General: No focal deficit present. Mental Status: He is alert and oriented to person, place, and time. Psychiatric: Mood and Affect: Mood normal. Behavior: Behavior normal. Thought Content: Thought content normal. Judgment: Judgment normal. Labs: Admission on 03/12/2023, Discharged on 03/12/2023 Component Date Value Ref Range Status Sodium 03/07/2023 139 Final Potassium 03/07/2023 4 Final Chloride 03/07/2023 107 Final Glucose 03/07/2023 153 mg/dL Final BUN, Bld 03/07/2023 22 Final Creatinine 03/07/2023 1.97 Final Calcium 03/07/2023 9 Final WBC 03/07/2023 6.7 Final RBC (0/HPF) 03/07/2023 4.58 Final Hemoglobin 03/07/2023 14.7 Final Hematocrit 03/07/2023 45 Final Platelets 0 (more content not included)... [facility] Evaluation note Note Date & Type Note Facility Evaluation note Diagnosis Type 2 diabetes mellitus with other circulatory complications (CMS/HCC) documented in this encounter [facility] Evaluation note Note Date & Type Note Facility Evaluation note Diagnosis Type 2 diabetes mellitus with hyperglycemia, without long-term current use of insulin (CMS/HCC)- Primary Essential (primary) hypertension (CMS/HCC) Unspecified essential hypertension Vitamin D deficiency, unspecified Mixed hyperlipidemia (CMS/HCC) Mixed hyperlipidemia Stage 3b chronic kidney disease (HCC) (CMS/HCC) Vitamin D deficiency Encounter for dietary consultation Class 2 severe obesity due to excess calories with serious comorbidity and body mass index (BMI) of 38.0 to 38.9 in adult ([facility]) documented in this encounter [facility] Evaluation note Note Date & Type Note Facility Evaluation note Diagnosis Type 2 diabetes mellitus with other circulatory complications documented in this encounter [facility] Evaluation note Note Date & Type Note Facility Evaluation note Diagnosis Type 2 diabetes mellitus with hyperglycemia, without long-term current use of insulin (HCC)- Primary Essential (primary) hypertension Unspecified essential hypertension Vitamin D deficiency, unspecified Mixed hyperlipidemia Mixed hyperlipidemia Stage 3b chronic kidney disease (CMS-HCC) Vitamin D deficiency Encounter for dietary consultation Class 3 severe obesity due to excess calories with serious comorbidity and body mass index (BMI) of 40.0 to 44.9 in adult ([facility]) documented in this encounter [facility] Summary Purpose Family History No Family History Records FoundNo Family History Records FoundNo Family History Records Found Advance Directives No Advanced Directives Records FoundNo Advanced Directives Records FoundNo Advanced Directives Records Found Additional Source Comments (unrecognized sect ion and content) No Status Records FoundNo Status Records FoundNo Status Records Found INFORMATION SOURCE (unrecogn ized section and content) DATE CREATED AUTHOR 10/02/2022 [facility] DATE CREATED AUTHOR AUTHOR'S ORGANIZ ATION 05/04/2024 [facility] DATE CREATED AUTHOR AUTHOR'S ORGANIZ ATION 04/07/2025 [facility] EPIC Reason for Visit (unrecogniz ed section and content) Reason Comments Med Refill Reason Comments Diabetes Follow-up Reason Comments Diabetes Follow-up LAB Care Teams (unrecognized sec tion and content) Cloth Classer Relationship Specialty Start Date End Date Jillian Pereyra MD [address] [place] [address] PCP - General Family Medicine 08/17/24 Cloth Classer Relationship Specialty Start Date End Date Jillian Pereyra MD [address] [place] [address] PCP - [facility] Medicine 08/17/24 Cloth Classer Relationship Specialty Start Date End Date Jillian Pereyra MD [address] [place] [address] PCP - General Family Medicine 08/17/24 Cloth Classer Relationship Specialty Start Date End Date Jillian Pereyra MD PCP - General Family Medicine 08/17/24 Cloth Classer Relationship Specialty Start Date End Date Jillian Pereyra MD PCP - General Family Medicine 08/17/24 FOR RECORDS PERTAINING TO PATIENTS WHO ARE OR HAVE BEEN ENROLLED IN A CHEMICAL DEPENDENCY/SUBSTANCEABUSE PROGRAM, SOME INFORMATION MAY BE OMITTED. This clinical summary was aggregated from multiple sources. Caution should be exercised in using it in the provision of clinical care. This summary normalizes information from multiple sources, and as a consequence, information in this document may materially change the coding, format and clinical context of patient data. In addition, data may be omitted in some cases. CLINICAL DECISIONS SHOULD BE BASED ON THE PRIMARY CLINICAL RECORDS. [facility] [employer] [facility]. provides no warranty or guarantee of the accuracy or completeness of information in this document.
[2025-04-29 07:36] LABS: Hematocrit 43.7 % (42.0-54.0); Hemoglobin 14.6 g/dL (14.0-18.0); Immature Granulocytes Abs Auto 0.01 10^3/uL (0.00-0.03); Immature Granulocytes Pct Auto 0.2 % (0.0-0.5); Lymphocytes Absolute Auto 1.7 10^3/uL (1.2-3.8); Mean Corpuscular HGB Conc 33.4 g/dL (29.9-35.2); Mean Corpuscular Hemoglobin 33.6 pg (25.9-34.0); Mean Corpuscular Volume 100.7 fL (80.0-94.0); Platelet Count 239 10^3/uL (150-450); Red Blood Count 4.34 10^6/uL (4.70-6.10); White Blood Count 6.7 10^3/uL (4.0-11.0)
[2025-04-29 08:19] LABS: Free T3 2.04 pg/mL (2.18-3.98); Thyroid Stimulating Hormone 3.015 uIU/mL (0.358-3.740)
== END 2025-04-29 07:13 | disposition home or self-care (01) ==
LOC: LAB 07:16
PROVIDERS: PCP Family Medicine; Visit Provider Family Medicine
DX: Z00.00 Encounter for general adult medical examination without abnormal findings (principal); Z12.11 Encounter for screening for malignant neoplasm of colon; E03.9 Hypothyroidism, unspecified; Z12.5 Encounter for screening for malignant neoplasm of prostate
CPT/HCPCS: 36415; 84436; 84443; 84481; 85025; G0103

== ENCOUNTER 2025-05-02 11:02 | Outpatient (REF) | payer MEDICARE, SELFPAY | END 2025-05-02 11:03 | disposition home or self-care (01) | LOC: LAB 11:02 | PROVIDERS: PCP Family Medicine; Visit Provider Family Medicine | DX: Z00.00 Encounter for general adult medical examination without abnormal findings (principal); Z12.11 Encounter for screening for malignant neoplasm of colon; E03.9 Hypothyroidism, unspecified; Z12.5 Encounter for screening for malignant neoplasm of prostate | CPT/HCPCS: G0328 ==